=== PATIENT | female | born 1945 | race Caucasian/White ===

== ENCOUNTER 2016-08-24 12:24 | Emergency (ER) | payer OTHER ==
[~2016-08-24] VITALS: Ht 171.4 cm; Wt 77.1 kg
[~2016-08-24 12:24] MED LIST: ABILIFY 15MG15 MG PO; ATORVASTATIN CA10 MG PO; CIPRO500 M1 PO; CIPROFLOXACIN250 MG PO; DEPAKOTE ER250 M1 PO; FAMOTIDINE20 MG PO; MINOCYCLINE HY100 MG PO; NAPROXEN375 M2 PO; SERTRALINE HCL50 MG PO; TOVIAZ8 M1 PO; WARFARIN SODIUM1 MG PO; WARFARIN SODIUM5 MG PO
--- NOTE | 2016-08-24 13:24 | ED GI/GU/ABDOMINAL COMPLAINT ---
History of Present Illness General Chief Complaint: Female Urogenital Problems Stated Complaint: URINARY SYMPTOMS XS 3 DAYS Source: patient Exam Limitations: poor historian Vital Signs & Intake/Output Vital Signs & Intake/Output Vital Signs Date Time Temp Pulse Resp B/P B/P Pulse O2 O2 Flow FiO2 Mean Ox Delivery Rate 08/24 1422 97.8 92 18 124/79 97 Room Air 08/24 1230 98.2 107 18 127/83 97 Room Air Room Air ED Intake and Output 08/25 0000 08/24 1200 Intake Total Output Total Balance Patient 170 lb Weight Weight Reported by Patient Measurement Method Allergies Coded Allergies: Penicillins (Intermediate, RASH 10/19/15) oxycodone (From OxyContin) (Intermediate, RASH 10/19/15) morphine (Intermediate, NAUSEA 10/19/15) Reconcile Medications Aripiprazole (Abilify) 15 MG TABLET 1 TAB PO DAILY DEPRESSION (Reported) Atorvastatin Calcium (Lipitor) 10 MG TABLET 1 TAB PO DAILY CHOLESTEROL ( Reported) Ciprofloxacin HCl (Cipro) 500 MG TABLET 1 TAB PO BID uti CIPROFLOXACIN HCL (Ciprofloxacin HCl) 250 MG TABLET 1 TAB PO BID UTI Divalproex Sodium (Depakote ER) 250 MG TAB.ER.24H 1 TAB PO DAILY MANIC BIPOLAR (Reported) Famotidine 20 MG TABLET 1 TAB PO BID REFLUX (Reported) Fesoterodine Fumarate (Toviaz) 8 MG TAB.ER.24H 1 TAB PO DAILY OVER ACTIVE BLADDER (Reported) Naproxen 375 MG TABLET 1 TAB PO BID PRN PAIN with food Sertraline HCl 50 MG TABLET 1 TAB PO DAILY DEPRESSION (Reported) Sulfamethoxazole/Trimethoprim (Bactrim Ds Tablet) 800 MG-160 MG TABLET 1 TAB PO BID UTI Warfarin Sodium 5 MG TABLET 1 TAB PO DAILY BLOOD THINNER (Reported) Triage Note: TRIAGE: 71 Y/O FEMALE PRESENTS C/O "I PEE ALL THE TIME, I MEAN ALL THE TIME." DENIES URINARY BURNING. 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 * YELLOW BAND APPLIED. Triage Nurses Notes Reviewed? yes ? n Is pt currently ? No Onset: Abrupt Duration: day(s):, constant, continues in ED Timing: recent history HPI: 71-year-old female comes into emergency room with increased frequency with urination and some incontinence issues is been going on on for the past week. Denies any fever chills vomiting. Denies any chest pain abdominal pain. She has chronic numbness in her hands bilaterally which she was told was rheumatoid arthritis a long time ago. She is a poor historian. Denies any other associated symptoms but is alert and oriented. (DIVINA REGAN) Past History Travel History Traveled to [place] past 21 day No Medical History Any Pertinent Medical History? see below for history Neurological: NONE EENT: NONE Cardiovascular: NONE Respiratory: NONE Gastrointestinal: NONE Hepatic: NONE Renal: NONE Musculoskeletal: NONE Psychiatric: depression Endocrine: NONE History of MRSA: No History of VRE: No History of CDIFF: No Surgical History Surgical History: BILATERAL HIP REPLACEMENT, LEFT KNEE TOTAL KNEE REPLACEMENT, RIGHT KNEE MENISCECTOMY Psychosocial History Who do you live with Patient/Self Services at Home None What is your primary language Jamaican Tobacco Use: Never used ETOH Use: occasional use Illicit Drug Use: denies illicit drug use Family History Family History, If Any: Relation not specified for: FH: breast cancer in first degree relative FH: colon cancer Scleroderma Hx Contributory? No (DIVINA REGAN) Review of Systems Review of Systems Constitutional: Reports: no symptoms. EENTM: Reports: no symptoms. Respiratory: Reports: no symptoms. Cardiovascular: Reports: no symptoms. GI: Reports: no symptoms. Genitourinary: Reports: see HPI. Musculoskeletal: Reports: no symptoms. Skin: Reports: no symptoms. Neurological/Psychological: Reports: no symptoms. Hematologic/Endocrine: Reports: no symptoms. Immunologic/Allergic: Reports: no symptoms. All Other Systems: Reviewed and Negative (DIVINA REGAN) Physical Exam Physical Exam General Appearance: well developed/nourished, no apparent distress, alert Head: atraumatic, normal appearance Eyes: Bilateral: normal appearance. Ears, Nose, Throat, Mouth: hearing grossly normal, moist mucous membrane Neck: normal inspection, full range of motion Respiratory: no respiratory distress Cardiovascular: regular rate/rhythm, tachycardia Gastrointestinal: normal bowel sounds, soft, non-tender Back: normal range of motion Extremities: normal range of motion Neurologic/Psych: awake, alert, oriented x 3, normal gait Skin: intact, normal color Core Measures ACS in differential dx? No Severe Sepsis Present: No Septic Shock Present: No (DIVINA REGAN) Progress Differential Diagnosis: appendicitis, colon cancer, diverticulitis, ischemic bowel, kidney stone, UTI/pyelo Plan of Care: Orders Procedure Date/time Status Regular Diet 08/24 D Active Add-on Test (ER Only) 08/24 1335 Active CULTURE,URINE 08/24 1308 Active URINALYSIS 08/24 1301 Complete Laboratory Tests 08/24/16 1308: Urine Color YEL, Urine Clarity HAZY H, Urine pH 6.0, Ur Specific [place] 1.015, Urine Protein 30 H, Urine Ketones NEG, Urine Nitrite NEG, Urine Bilirubin NEG, Urine Urobilinogen 1.0, Ur Leukocyte Esterase LARGE H, Ur Microscopic SEDIMENT EXAMINED, Urine RBC 10-15 H, Urine WBC 25-50 H, Ur Epithelial Cells FEW, Urine Bacteria MOD H, Micro UA Comment MORE INFO: H, Urine Hemoglobin MOD H, Urine Glucose NEG Microbiology 08/24 1308 URINE ROUT: Urine Culture - RECD Initial ED EKG: none Comments: 08/24/2016 2:27:21 PM Patient clinically looks well. She is in no apparent distress. Patient seen and evaluated by Dr. Castro. Patient slightly tachycardic but otherwise no acute findings. She appears to have an uncomplicated UTI. Started on oral antibiotics. Drink plenty of fluids. Lives with family at home. (BROOK REESE,DIVINA) Departure Departure Disposition: HOME OR SELF CARE Condition: Stable Clinical Impression Primary Impression: UTI (urinary tract infection) Referrals: BARB ORTIZ,CHARLIE Raymundo (PCP/Family) Additional Instructions: Take Bactrim as prescribed. Follow-up with your primary care doctor. Return if any concerns worsening symptoms. Please go over all results of today's visit with your primary care doctor. Contact your primary care doctor to let them know you were here in the emergency room. There may be nonspecific findings which may not be related to your visit today here in the emergency room but may require further evaluation and chronic monitoring by your primary care doctor. If you had a laceration today the chance of foreign body always remains. You should follow-up with your primary care doctor for recheck in 3-5 days for a wound check. If you had an x-ray done there is a chance that a fracture could have been missed on initial read and you should follow-up with your primary care doctor for repeat x-rays if symptoms persist. If your blood pressure was elevated here in the emergency room please have rechecked by her primary care doctor within the next 48 hours by your primary care doctor. If you were prescribed a narcotic here in the emergency room or any type of controlled substances you're not allowed to drive while taking this medication or operate any type of heavy machinery. Narcotics can make you feel lightheaded dizziness nausea and can cause constipation. You may need to slate picker a stool softener. Thank you for choosing [facility] emergency room. Please return to the emergency room immediately if you have any other concerns worsening of symptoms. Departure Forms: Customer Survey General Discharge Information Prescriptions: Current Visit Scripts Sulfamethoxazole/Trimethoprim (Bactrim Ds Tablet) 1 TAB PO BID #14 TAB (DIVINA REGAN) PA/CONVEYOR LINE BATTERY CHARGER Co-Sign Statement Statement: ED Attending supervision documentation- [x] I saw and evaluated the patient. I have also reviewed all the pertinent lab results and diagnostic results. I agree with the findings and the plan of care as documented in the PA's/CONVEYOR LINE BATTERY CHARGER's documentation. [] I have reviewed the ED Record and agree with the PA's/CONVEYOR LINE BATTERY CHARGER's documentation. [] Additions or exceptions (if any) to the PAs/CONVEYOR LINE BATTERY CHARGER's note and plan are summarized below: [] (NGHIA ORTIZ,MARQUEZ Justice)
[2016-08-24] MEDS ORDERED: BACTRIM DS TAB1 EACH PO (14:02)
[2016-08-24 14:22] VITALS: BP 124/79
== END 2016-08-24 14:23 ==
LOC: ERH 12:24
DX: N39.0 Urinary tract infection, site not specified (principal)
CPT/HCPCS: 81001; 87086

== ENCOUNTER 2017-04-25 13:37 | Emergency (ER) | payer OTHER ==
[~2017-04-25] VITALS: Ht 162.6 cm; Wt 83.9 kg
[~2017-04-25 13:37] MED LIST changes: -ABILIFY 15MG15 MG PO; +ABILIFY15 M1 PO; +BACTRIM DS TAB1 EACH PO; +FAMOTIDINE20 M1 PO; +GABAPENTIN300 M2 PO; +LIPITOR80 M1 PO; +MOBIC7.5 M1 PO
[2017-04-25 13:43] VITALS: BP 122/65
--- NOTE | 2017-04-25 16:31 | ED GI/GU/ABDOMINAL COMPLAINT ---
History of Present Illness General Chief Complaint: Female Urogenital Problems Stated Complaint: FREQUENT URINATION Source: patient Exam Limitations: no limitations Vital Signs & Intake/Output Vital Signs & Intake/Output Vital Signs Date Time Temp Pulse Resp B/P B/P Pulse O2 O2 Flow FiO2 Mean Ox Delivery Rate 04/25 1739 Room Air 04/25 1343 97.3 79 18 122/65 99 Room Air Allergies Coded Allergies: Penicillins (Intermediate, RASH 10/19/15) oxycodone (From OxyContin) (Intermediate, RASH 10/19/15) morphine (Intermediate, NAUSEA 10/19/15) Reconcile Medications Aripiprazole (Abilify) 15 MG TABLET 1 TAB PO DAILY MENTAL HEALTH (Reported) Atorvastatin Calcium (Lipitor) 80 MG TABLET 1 TAB PO DAILY CHOLESTEROL ( Reported) Ciprofloxacin HCl (Cipro) 500 MG TABLET 1 TAB PO BID UTI Famotidine 20 MG TABLET 1 TAB PO DAILY GI (Reported) Fesoterodine Fumarate (Toviaz) 8 MG TAB.ER.24H 1 TAB PO DAILY BLADDER ( Reported) Gabapentin 300 MG CAPSULE 1 CAP PO BID NUMBNESS IN HANDS (Reported) Sertraline HCl 50 MG TABLET 1 TAB PO DAILY DEPRESSION (Reported) Triage Note: PT TO ED FOR URINARY FREQUENCY AND FLANK PAIN X SEVERAL WEEKS. Triage Nurses Notes Reviewed? yes ? N Is pt currently ? No Duration: constant Timing: recent history Quality/Severity: moderate Severity Numbers: 5 Location: urethral Radiation: no radiation Activities at Onset: none Prior Abdominal Problems: similar symptoms (UTI) HPI: Patient is a 71-year-old female with past medical history of chronic UTIs and depression and chronic back pain who presents emergency with a 10 day history of increased frequency or urination and urgency of frequency of urination, patient denies any fever chills nausea vomiting abdominal pain or worsening back pain. Patient is able to tolerate by mouth with no change in symptoms. Denies any vaginal bleeding or discharge or hematuria Past History Travel History Traveled to [place] past 21 day No Medical History Any Pertinent Medical History? see below for history Neurological: NONE EENT: NONE Cardiovascular: hyperlipidemia Respiratory: NONE Gastrointestinal: NONE Hepatic: NONE Renal: NONE Musculoskeletal: NONE Psychiatric: depression Endocrine: NONE Blood Disorders: NONE Cancer(s): NONE TELECOM ANALYST/Reproductive: NONE History of MRSA: No History of VRE: No History of CDIFF: No Surgical History Surgical History: BILATERAL HIP REPLACEMENT, LEFT KNEE TOTAL KNEE REPLACEMENT, RIGHT KNEE MENISCECTOMY left knee surgery Psychosocial History Who do you live with Patient/Self Services at Home None What is your primary language Italian Tobacco Use: Never used ETOH Use: denies use Illicit Drug Use: denies illicit drug use Family History Family History, If Any: Relation not specified for: FH: breast cancer in first degree relative FH: colon cancer Scleroderma Hx Contributory? No Review of Systems Review of Systems Constitutional: Reports: no symptoms. EENTM: Reports: no symptoms. Respiratory: Reports: no symptoms. Cardiovascular: Reports: no symptoms. GI: Reports: see HPI. Denies: abdominal pain, nausea. Genitourinary: Reports: see HPI, pain. Musculoskeletal: Reports: no symptoms. Skin: Reports: no symptoms. Neurological/Psychological: Reports: no symptoms. Hematologic/Endocrine: Reports: no symptoms. Immunologic/Allergic: Reports: no symptoms. All Other Systems: Reviewed and Negative Physical Exam Physical Exam General Appearance: no apparent distress, alert, comfortable Head: atraumatic Eyes: Bilateral: normal appearance. Ears, Nose, Throat, Mouth: hearing grossly normal Neck: normal inspection Respiratory: normal breath sounds Cardiovascular: regular rate/rhythm Peripheral Pulses: 2+ radial (R) Gastrointestinal: normal bowel sounds, soft, non-tender Back: NO CVA TENDERNESS Extremities: normal range of motion Neurologic/Psych: no motor/sensory deficits, awake Skin: intact, normal color, warm/dry Core Measures ACS in differential dx? No Sepsis Present: No Sepsis Focused Exam Completed? No Progress Differential Diagnosis: AAA, AMI, appendicitis, biliary colic, bowel obstruction , colon cancer, cholecystitis, diverticulitis, endometritis, esophageal varices, gastritis, hepatitis, hernia, hemorrhoids, ischemic bowel, inflamm bowel dis, kidney stone, ovarian cyst, ovarian torsion, pancreatitis, PID/cervicitis, peptic ulcer, PUD/GERD, perforated viscous, SBO, threatened AB, UTI/pyelo Plan of Care: Orders Procedure Date/time Status CULTURE,URINE 04/25 1656 Active URINALYSIS 04/25 1518 Complete Laboratory Tests 04/25/17 1706: Urine Color YEL, Urine Clarity CLEAR, Urine pH 7.0, Ur Specific [place] 1.015, Urine Protein NEG, Urine Ketones NEG, Urine Nitrite NEG, Urine Bilirubin NEG, Urine Urobilinogen 0.2, Ur Leukocyte Esterase LARGE H, Ur Microscopic SEDIMENT EXAMINED, Urine RBC 15-25 H, Ur Epithelial Cells FEW, Urine Bacteria FEW H, Urine Hemoglobin NEG, Urine Glucose NEG Microbiology 04/25 1706 URINE ROUT: Urine Culture - RECD Patient on initial presentation was resting comfortable at bedside no tenderness upon palpation of abdomen no CVA tenderness patient afebrile into pyelonephritis or intra-abdominal acute process. Patient does have increased frequency of urination Urine analysis showed slight concern of UTI however patient again has nontender abdomen denies any preceding symptoms of abdominal pain and has no CVA tenderness Patient will be treated for UNcomplicated cystitis Urine culture pending Initial ED EKG: none Departure Departure Disposition: HOME OR SELF CARE Condition: Stable Clinical Impression Primary Impression: UTI (urinary tract infection) Referrals: Kamran ORTIZ,Zoya Raymundo (PCP/Family) Additional Instructions: As discussed in the prescription for ciprofloxacin as directed for the full course, if symptoms worsen return to emergency, next week follow up with her primary care doctor. Prescriptions waiting at [facility] Departure Forms: Customer Survey General Discharge Information Prescriptions: Current Visit Scripts Ciprofloxacin HCl (Cipro) 1 TAB PO BID #14 TAB
[2017-04-25] MEDS ORDERED: CIPRO500 M1 PO (17:33)
== END 2017-04-25 17:47 ==
LOC: ERH 13:37
DX: N39.0 Urinary tract infection, site not specified (principal)
CPT/HCPCS: 81001; 87086

== ENCOUNTER 2017-05-21 14:01 | Emergency (ER) | payer OTHER ==
[~2017-05-21] VITALS: Ht 167.6 cm; Wt 65.8 kg
[2017-05-21 15:04] LABS: ABSOLUTE BASOPHIL COUNT 0 /CUMM (0.0-0.2); ABSOLUTE EOSINOPHIL COUNT 0.2 /CUMM (0.0-0.7); ABSOLUTE GRANULOCYTE CT 3.9 /CUMM (1.4-6.5); ABSOLUTE LYMPH COUNT 1.5 /CUMM (1.2-3.4); ABSOLUTE MONOCYTE COUNT 0.5 /CUMM (0.10-0.60); BASOPHIL % 0.7 % (0.0-2.0); EOSINOPHIL % 2.7 % (0-5); GRANULOCYTE % 64.3 % (42.2-75.2); HEMATOCRIT 39.6 % (37-47); MEAN CORPUSCULAR HGB CONC 33.2 G/DL (33.0-37.0); MEAN CORPUSCULAR VOLUME 87.2 FL (81.0-99.0); MEAN PLATELET VOLUME 7.3 FL (7.4-10.4); PLATELET COUNT 336 /CUMM (130-400); RBC DISTRIBUTION WIDTH 13.3 % (11.5-14.5); RED BLOOD CELL CT 4.53 /CUMM (4.20-5.40); WHITE BLOOD CELL COUNT 6.1 /CUMM (4.8-10.8)
--- NOTE | 2017-05-21 18:53 | ED GENERAL ADULT ---
History of Present Illness General Chief Complaint: General Adult Stated Complaint: MULTIPLE COMPLAINTS X 2 MONTHS Source: patient Exam Limitations: no limitations Vital Signs & Intake/Output Vital Signs & Intake/Output ED Intake and Output 05/22 0000 05/21 1200 Intake Total Output Total Balance Patient 145 lb Weight Weight Reported by Patient Measurement Method Allergies Coded Allergies: Penicillins (Intermediate, RASH 10/19/15) oxycodone (From OxyContin) (Intermediate, RASH 10/19/15) morphine (Intermediate, NAUSEA 10/19/15) Reconcile Medications Aripiprazole (Abilify) 15 MG TABLET 1 TAB PO DAILY MENTAL HEALTH (Reported) Atorvastatin Calcium (Lipitor) 80 MG TABLET 1 TAB PO DAILY CHOLESTEROL ( Reported) Ciprofloxacin HCl (Cipro) 500 MG TABLET 1 TAB PO BID uti Ciprofloxacin HCl (Cipro) 500 MG TABLET 1 TAB PO BID UTI Famotidine 20 MG TABLET 1 TAB PO DAILY GI (Reported) Fesoterodine Fumarate (Toviaz) 8 MG TAB.ER.24H 1 TAB PO DAILY BLADDER ( Reported) Gabapentin 300 MG CAPSULE 1 CAP PO BID NUMBNESS IN HANDS (Reported) Sertraline HCl 50 MG TABLET 1 TAB PO DAILY DEPRESSION (Reported) Triage Note: PT TO ED FOR ENTIRE BODY NUMBNESS, WEAKNESS AND TINGLING X 2 MONTHS. Triage Nurses Notes Reviewed? yes Onset: Gradual Duration: week(s): (2-3 months ), changing over time, continues in ED Timing: recent history Injury Environment: home Severity: mild, moderate Severity Numbers: 6 No Modifying Factors: none LMP (ages 10-50): unknown : No Patient currently breastfeeds: No HPI: 71-year-old female past medical history hyperlipidemia and depression presents for evaluation of multiple complaints. She reports pain and stiffness in her bilateral hands and wrists. This been going on for months. She states she was diagnosed with arthritis and has been taking Advil with only minimal improvement. She also reports numbness and tingling in her bilateral hands which is also been going on for several months. She says now that her knees are also numb. No swelling spreading redness fever or trauma. Additionally she reports urinary frequency. No urgency fever or back pain abdominal pain chest pain shortness of breath nausea vomiting or diarrhea. No vaginal discharge. (Gerardo Tian) Past History Travel History Traveled to [place] past 21 day No Medical History Any Pertinent Medical History? 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 History of MRSA: No History of VRE: No History of CDIFF: No Surgical History Surgical History: BILATERAL HIP REPLACEMENT, LEFT KNEE TOTAL KNEE REPLACEMENT, RIGHT KNEE MENISCECTOMY left knee surgery Psychosocial History Who do you live with Patient/Self Services at Home None What is your primary language Hong Konger Tobacco Use: Current Daily Use Daily Tobacco Use Amount/Type: => 5 Cigarettes daily ETOH Use: denies use Illicit Drug Use: denies illicit drug use Family History Family History, If Any: Relation not specified for: FH: breast cancer in first degree relative FH: colon cancer Scleroderma Hx Contributory? No (Gerardo Tian) Review of Systems Review of Systems Constitutional: Reports: no symptoms. EENTM: Reports: no symptoms. Respiratory: Reports: no symptoms. Cardiovascular: Reports: no symptoms. GI: Reports: no symptoms. Genitourinary: Reports: frequency. Musculoskeletal: Reports: joint pain, joint swelling, muscle pain, muscle stiffness. Skin: Reports: no symptoms. Neurological/Psychological: Reports: no symptoms. Hematologic/Endocrine: Reports: no symptoms. Immunologic/Allergic: Reports: no symptoms. All Other Systems: Reviewed and Negative (Gerardo Tian) Physical Exam Physical Exam General Appearance: well developed/nourished, no apparent distress, alert, awake Head: atraumatic, normal appearance Eyes: Bilateral: normal appearance, PERRL, EOMI. Ears, Nose, Throat: normal pharynx, normal ENT inspection, hearing grossly normal Neck: normal inspection, supple, full range of motion Respiratory: normal breath sounds, chest non-tender, no respiratory distress, lungs clear Cardiovascular: regular rate/rhythm, normal peripheral pulses Peripheral Pulses: 2+ radial (R), 2+ radial (L) Gastrointestinal: normal bowel sounds, soft, non-tender, no organomegaly Back: normal inspection, normal range of motion, no vertebral tenderness, no CVA tenderness Extremities: there are arthritic changes in the bilateral hands. No swelling of the wrists. No erythema. Pain with range of motion of the bilateral wrists and hands. Neurovascular supply is intact. No open wounds. , no swelling of the bilateral knees. No redness or warmth. Full range of motion of the bilateral knees and hips. Patient is able to walk and bear weight. Neurologic/Psych: no motor/sensory deficits, awake, alert, oriented x 3, normal gait Skin: intact, normal color, warm/dry Core Measures ACS in differential dx? No CVA/TIA Diagnosis: No Sepsis Present: No Sepsis Focused Exam Completed? No (Jason REESE,Gerardo) Progress Differential Diagnoses I considered the following diagnoses in my evaluation of the patient: [ Osteoarthritis, rheumatoid arthritis, Lyme disease, cellulitis, neuropathy, carpal tunnel, cubital tunnel, electrolyte abnormality, UTI, pyelonephritis] Plan of Care: Orders Procedure Date/time Status Add-on Test (ER Only) 05/21 2019 Active CULTURE,URINE 05/21 1949 Active RAPID VIRAL INFLUENZA A 05/21 173 Complete Add-on Test (ER Only) 05/21 1611 Active URINE DRUG SCREEN FOR ER ONLY 05/21 1611 Active ETHANOL 05/21 1457 Complete URINALYSIS 05/21 1431 Complete TROPONIN LEVEL 05/21 1431 Complete COMPREHENSIVE METABOLIC PANEL 05/21 1431 Complete CBC WITHOUT DIFFERENTIAL 05/21 1431 Complete EKG 05/21 1431 Active Laboratory Tests 05/21/17 1950: Urine Opiates Screen Pending, Methadone Screen Pending, Barbiturate Screen Pending, Ur Phencyclidine Scrn Pending, Amphetamines Screen Pending, U Benzodiazepines Scrn Pending, Urine Cocaine Screen Pending, Urine Cannabis Screen Pending, Urinalysis MOD H, Urine Color YEL, Urine Clarity CLDY H, Urine pH 6.0, Ur Specific [place] 1.015, Urine Protein 30 H, Urine Ketones NEG, Urine Nitrite NEG, Urine Bilirubin NEG, Urine Urobilinogen 0.2, Ur Leukocyte Esterase LARGE H, Ur Microscopic SEDIMENT EXAMINED, Urine RBC 3-5, Urine WBC 50-75 H, Ur Epithelial Cells MANY H, Urine Bacteria FEW H, Urine Mucus MOD H, Urine Hemoglobin SMALL H, Urine Glucose NEG 05/21/17 1457: Anion Gap 14, Estimated GFR > 60, BUN/Creatinine Ratio 30.0 H, Glucose 124 H, Calcium 10.0, Total Bilirubin 0.9, AST 20, ALT 28, Alkaline Phosphatase 53, Troponin I < 0.01, Total Protein 7.8, Albumin 4.4, Globulin 3.4, Albumin/ Globulin Ratio 1.3, CBC w Diff NO MAN DIFF REQ, RBC 4.53, MCV 87.2, MCH 29.0, MCHC 33.2, RDW 13.3, MPV 7.3 L, Gran % 64.3, Lymphocytes % 23.9, Monocytes % 8.4, Eosinophils % 2.7, Basophils % 0.7, Absolute Granulocytes 3.9, Absolute Lymphocytes 1.5, Absolute Monocytes 0.5, Absolute Eosinophils 0.2, Absolute Basophils 0, Serum Alcohol < 10.0 Microbiology 05/21 1949 URINE ROUT: Urine Culture - RECD 05/21 1852 NASOPHARYN: Influenza Virus A & B Rapid Smear - COMP Patient seen and evaluated. There is no trauma no signs of infection on exam. Patient has a long history of osteoarthritis. All blood work is within normal limits. Flu is negative. Urine is showing signs of infection. Patient was medicated here with Tylenol feels like her wrists and knees are feeling better. She'll be discharged home on Cipro. Urine culture sent. Advised rest and fluids Tylenol ibuprofen. Patient is alert and oriented 3 she has steady gait. Discussed return precautions in detail. Case discussed with Dr. Pop he agrees. Diagnostic Imaging: Viewed by Me: Radiology Read. Discussed w/RAD: Radiology Read. CXR Impression: PATIENT: MADDI VALDIVIA PRESENT AGE: 71 PATIENT ACCOUNT NO: [id number] : 46 LOCATION: [facility] ORDERING PHYSICIAN: Gerardo REESE SERVICE DATE: 05/21/17 EXAM TYPE: RAD - XRY-CHEST XRAY, TWO VIEWS EXAMINATION: XR CHEST CLINICAL INFORMATION: Cough and fever. COMPARISON: Chest 01/09/2017 TECHNIQUE: 2 views of the chest were obtained. FINDINGS: There is cardiomegaly with elevated left hemidiaphragm. Pulmonary vascularity is normal. The lungs are expanded and clear. No gross bony abnormality seen. IMPRESSION: Unremarkable chest examination. DICTATED BY: Gunnar Tian MD DATE/TIME DICTATED:05/21/171945 MERCHANDISE STOCKER:MARY JANE DATE/ TIME TRANSCRIBED:05/21/171945 CONFIDENTIAL, DO NOT COPY WITHOUT APPROPRIATE AUTHORIZATION. <Electronically signed in Other Vendor System> Initial ED EKG: sinus tach rate 104, inferior infarct age indeterminate (Jason REESE,Gerardo) Departure Departure Disposition: HOME OR SELF CARE Condition: Stable Clinical Impression Primary Impression: UTI (urinary tract infection) Qualifiers: Urinary tract infection type: acute cystitis Hematuria presence: without hematuria Qualified Code: N30.00 - Acute cystitis without hematuria Referrals: Zoya Andrew MD (PCP/Family) Additional Instructions: Take antibiotics as directed for the full course. Use Tylenol 1000mg every 6 hours as needed for pain. Follow-up with your primary care doctor this week. Monitor symptoms closely return with any concerns. Departure Forms: Customer Survey General Discharge Information Prescriptions: Current Visit Scripts Ciprofloxacin HCl (Cipro) 1 TAB PO BID #14 TAB (Gerardo Tian) PA/GAS LINE INSTALLER Co-Sign Statement Statement: ED Attending supervision documentation- x I saw and evaluated the patient. I have also reviewed all the pertinent lab results and diagnostic results. I agree with the findings and the plan of care as documented in the PA's/GAS LINE INSTALLER's documentation. [] I have reviewed the ED Record and agree with the PA's/GAS LINE INSTALLER's documentation. [] Additions or exceptions (if any) to the PAs/GAS LINE INSTALLER's note and plan are summarized below: [] (Michele ORTIZ,Misael) Critical Care Note Critical Care Note Critical Care Time: non-applicable (Gerardo Tian)
--- NOTE | 2017-05-21 19:50 | RADIOLOGY REPORT ---
EXAMINATION: XR CHEST CLINICAL INFORMATION: Cough and fever. COMPARISON: Chest 01/09/2017 TECHNIQUE: 2 views of the chest were obtained. FINDINGS: There is cardiomegaly with elevated left hemidiaphragm. Pulmonary vascularity is normal. The lungs are expanded and clear. No gross bony abnormality seen. IMPRESSION: Unremarkable chest examination.
[2017-05-21] MEDS ORDERED: CIPRO500 M1 PO (20:28)
[2017-05-21 20:29] VITALS: BP 140/90
== END 2017-05-21 20:33 ==
LOC: ERH 14:01
PROVIDERS: Physician Assistant Medical
DX: N39.0 Urinary tract infection, site not specified (principal)
CPT/HCPCS: 71046; 80307; 81001; 87086; 87804; 87804-59; 93005; 93010; G0480

== ENCOUNTER 2017-10-14 18:12 | Inpatient (IN) | payer OTHER ==
[~2017-10-14] VITALS: Ht 170.2 cm; Wt 77.1 kg
--- NOTE | 2017-10-14 18:40 | ED PSYCHIATRIC COMPLAINT ---
History of Present Illness General Chief Complaint: Psychiatric Related Complaint Stated Complaint: SI AND HI WITH A PLAN Source: patient, family Exam Limitations: no limitations Vital Signs & Intake/Output Vital Signs & Intake/Output Vital Signs Date Time Temp Pulse Resp B/P B/P Pulse O2 O2 Flow FiO2 Mean Ox Delivery Rate 10/14 1821 99.1 120 18 123/92 97 Room Air Allergies Coded Allergies: Penicillins (Intermediate, RASH 10/19/15) oxycodone (From OxyContin) (Intermediate, RASH 10/19/15) morphine (Intermediate, NAUSEA 10/19/15) Reconcile Medications Aripiprazole (Abilify) 15 MG TABLET 1 TAB PO DAILY MENTAL HEALTH (Reported) Atorvastatin Calcium (Lipitor) 80 MG TABLET 1 TAB PO DAILY CHOLESTEROL ( Reported) Ciprofloxacin HCl (Cipro) 500 MG TABLET 1 TAB PO BID uti Ciprofloxacin HCl (Cipro) 500 MG TABLET 1 TAB PO BID UTI Famotidine 20 MG TABLET 1 TAB PO DAILY GI (Reported) Fesoterodine Fumarate (Toviaz) 8 MG TAB.ER.24H 1 TAB PO DAILY BLADDER ( Reported) Gabapentin 300 MG CAPSULE 1 CAP PO BID NUMBNESS IN HANDS (Reported) Sertraline HCl 50 MG TABLET 1 TAB PO DAILY DEPRESSION (Reported) Triage Note: 72F TO ED WITH DEPRESSION SYMPTOMS, POOR ENERGY, ISOLATION, AND +SI WITHOUT A PLAN OR PREVIOUS ATTEMPTS. PT WAS ON ABILIFY, ZOLOFT AND WAS TOLD TO STOP TAKING THEM AND TO COME IN FOR MED ADJUSTMENT. PT DENIES HI. DENIES ETOH OR ILLICIT DRUGS. PRESENTS WITH DYSPHORIC MOOD AND LIMITED RANGE OF AFFECT. FAMILY REPORTS VERY POOR ADL'S Triage Nurses Notes Reviewed? yes Onset: Gradual Duration: week(s): Timing: recent history Severity: moderate HPI: 72YO FEMALE with hx of depression, hyperlipidemia sent in by primary doctor for worsening depression symptoms and suicidal ideation. Patient reports depression for over 1 year for which she has been taking medication. He does not notice much relief from these medications. [id number] states that for the past 6 months she has seen a deterioration in the patient's condition. Patient has very poor hydration, low appetite, lack of interest in any activities. Patient reports thoughts of suicide however she currently has no suicidal intent or plan. She states her doctor sent her in for medication adjustment and possible admission. The patient denies HI. Past History Travel History Traveled to [place] past 21 day No Medical History Any Pertinent Medical History? 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 No Review of Systems Review of Systems Constitutional: Reports: see HPI. EENTM: Reports: no symptoms. Respiratory: Reports: no symptoms. Cardiovascular: Reports: no symptoms. GI: Reports: no symptoms. Genitourinary: Reports: no symptoms. Musculoskeletal: Reports: no symptoms. Skin: Reports: no symptoms. Neurological/Psychological: Reports: see HPI. Hematologic/Endocrine: Reports: no symptoms. Immunologic/Allergic: Reports: no symptoms. All Other Systems: Reviewed and Negative Physical Exam Physical Exam General Appearance: well developed/nourished, no apparent distress, alert, awake Head: atraumatic, normal appearance Eyes: Bilateral: normal appearance. Ears, Nose, Throat: hearing grossly normal Neck: normal inspection, supple, full range of motion Respiratory: normal breath sounds, no respiratory distress, lungs clear Cardiovascular: regular rate/rhythm Gastrointestinal: normal bowel sounds, soft, non-tender, no organomegaly Extremities: normal range of motion Neurological/Psychiatric: no motor/sensory deficits, awake, normal mood/affect, calm Appearance/Memory/Insight: appropriate appearance, appropriate insight Behavoir/Eye Contact/Speech: cooperative, normal speech Thoughts/Hallucinations: normal thought pattern, no apparent hallucination Skin: intact, normal color, warm/dry SAD PERSONS SAD PERSONS Response Value Age <19 or >45 years? yes 1 Depression/Hopelessness? yes 2 Single//? yes 1 Social Support? has support 0 Total 4 SAD PERSONS Done? yes Progress Differential Diagnosis: dementia, drug overdose, depression, suicidal ideation, anemia, electrolyte abnormality Plan of Care: Orders Procedure Date/time Status Regular Diet 07/18 B Active Continuous Observation Monitor 10/15 1827 Active URINE DRUG SCREEN FOR ER ONLY 10/15 1827 Active URINALYSIS 10/15 1827 Active TROPONIN LEVEL 10/15 1827 Active ETHANOL 10/15 1827 Active COMPREHENSIVE METABOLIC PANEL 10/15 1827 Active CBC WITHOUT DIFFERENTIAL 10/15 1827 Active ED CRISIS PSYCH CONSULT 10/15 1827 Active Laboratory Tests 10/14/17 1849: Sodium Pending, Potassium Pending, Chloride Pending, Carbon Dioxide Pending, Anion Gap Pending, BUN Pending, Creatinine Pending, BUN/Creatinine Ratio Pending , Glucose Pending, Calcium Pending, Total Bilirubin Pending, AST Pending, ALT Pending, Alkaline Phosphatase Pending, Troponin I Pending, Total Protein Pending , Albumin Pending, Globulin Pending, Albumin/Globulin Ratio Pending, CBC w Diff Pending, WBC Pending, RBC Pending, Hgb Pending, Hct Pending, MCV Pending, MCH Pending, MCHC Pending, RDW Pending, Plt Count Pending, MPV Pending, Serum Alcohol Pending Labs and urinalysis are pending. The patient was signed out to Dr. Su pending crisis evaluation and labs. Hand-Off Endorsed To: Jeferson Su DO Endorsed Time: 1839 Pending: consult (crisis), labs Departure Departure Disposition: STILL A PATIENT Condition: Stable Clinical Impression Primary Impression: Suicidal ideation Secondary Impressions: Depression Qualifiers: Depression Type: unspecified Qualified Code: F32.9 - Major depressive disorder, single episode, unspecified Referrals: Kamran ORTIZ,Zoya Raymundo (PCP/Family) Departure Forms: Customer Survey General Discharge Information
--- NOTE | 2017-10-14 18:45 | ED PSYCHIATRIC COMPLAINT ---
History of Present Illness General Chief Complaint: Psychiatric Related Complaint Stated Complaint: SI AND HI WITH A PLAN Source: patient, family Exam Limitations: no limitations Vital Signs & Intake/Output Vital Signs & Intake/Output Vital Signs Date Time Temp Pulse Resp B/P B/P Pulse O2 O2 Flow FiO2 Mean Ox Delivery Rate 10/15 0834 98.7 108 20 112/79 98 Room Air 10/15 0550 97.0 94 20 128/85 95 Room Air 10/14 2237 98.4 99 18 110/83 94 Room Air 10/14 2016 98.6 110 18 117/91 94 Room Air 10/14 1907 Room Air 10/14 1821 99.1 120 18 123/92 97 Room Air ED Intake and Output 10/15 0000 10/14 1200 Intake Total Output Total Balance Patient 170 lb Weight Allergies Coded Allergies: Penicillins (Intermediate, RASH 10/19/15) oxycodone (From OxyContin) (Intermediate, RASH 10/19/15) morphine (Intermediate, NAUSEA 10/19/15) Triage Note: 72F TO ED WITH DEPRESSION SYMPTOMS, POOR ENERGY, ISOLATION, AND +SI WITHOUT A PLAN OR PREVIOUS ATTEMPTS. PT WAS ON ABILIFY, ZOLOFT AND WAS TOLD TO STOP TAKING THEM AND TO COME IN FOR MED ADJUSTMENT. PT DENIES HI. DENIES ETOH OR ILLICIT DRUGS. PRESENTS WITH DYSPHORIC MOOD AND LIMITED RANGE OF AFFECT. FAMILY REPORTS VERY POOR ADL'S Triage Nurses Notes Reviewed? yes Onset: Gradual Duration: week(s): Timing: recent history Severity: moderate HPI: 72YO FEMALE with hx of depression, hyperlipidemia sent in by primary doctor for worsening depression symptoms and suicidal ideation. Patient reports depression for over 1 year for which she has been taking medication. He does not notice much relief from these medications. Xezyvdta-he-lei states that for the past 6 months she has seen a deterioration in the patient's condition. Patient has very poor hydration, low appetite, lack of interest in any activities. Patient reports thoughts of suicide however she currently has no suicidal intent or plan. She states her doctor sent her in for medication adjustment and possible admission. The patient denies HI. (Jina REESE,Briana Azevedo) Reconcile Medications Aripiprazole (Abilify) 15 MG TABLET 1 TAB PO DAILY MENTAL HEALTH (Reported) Atorvastatin Calcium (Lipitor) 80 MG TABLET 1 TAB PO DAILY CHOLESTEROL ( Reported) Famotidine 20 MG TABLET 1 TAB PO DAILY GI (Reported) Fesoterodine Fumarate (Toviaz) 8 MG TAB.ER.24H 1 TAB PO DAILY BLADDER ( Reported) Gabapentin 300 MG CAPSULE 1 CAP PO BID NUMBNESS IN HANDS (Reported) Sertraline HCl 50 MG TABLET 1 TAB PO DAILY DEPRESSION (Reported) (Jeferson Huerta DO) Past History Travel History Traveled to [place] past 21 day No Medical History Any Pertinent Medical History? see below for history Neurological: NONE EENT: NONE Cardiovascular: hyperlipidemia Respiratory: NONE Gastrointestinal: NONE Hepatic: NONE Renal: NONE Musculoskeletal: NONE Psychiatric: depression Endocrine: NONE Blood Disorders: NONE Cancer(s): NONE CRITICAL CARE CNS/Reproductive: NONE History of MRSA: No History of VRE: No History of CDIFF: No Surgical History Surgical History: BILATERAL HIP REPLACEMENT, LEFT KNEE TOTAL KNEE REPLACEMENT, RIGHT KNEE MENISCECTOMY left knee surgery Psychosocial History Who do you live with Patient/Self Services at Home None What is your primary language Luxembourgish Tobacco Use: Never used Family History Family History, If Any: Relation not specified for: FH: breast cancer in first degree relative FH: colon cancer Scleroderma Hx Contributory? No (Briana Quiroz) Review of Systems Review of Systems Constitutional: Reports: see HPI. EENTM: Reports: no symptoms. Respiratory: Reports: no symptoms. Cardiovascular: Reports: no symptoms. GI: Reports: no symptoms. Genitourinary: Reports: no symptoms. Musculoskeletal: Reports: no symptoms. Skin: Reports: no symptoms. Neurological/Psychological: Reports: see HPI. Hematologic/Endocrine: Reports: no symptoms. Immunologic/Allergic: Reports: no symptoms. All Other Systems: Reviewed and Negative (Briana Quiroz) Physical Exam Physical Exam General Appearance: well developed/nourished, no apparent distress, alert, awake Head: atraumatic, normal appearance Eyes: Bilateral: normal appearance. Ears, Nose, Throat: hearing grossly normal Neck: normal inspection, supple, full range of motion Respiratory: normal breath sounds, no respiratory distress, lungs clear Cardiovascular: regular rate/rhythm Gastrointestinal: normal bowel sounds, soft, non-tender, no organomegaly Extremities: normal range of motion Neurological/Psychiatric: awake, alert, normal mood/affect, calm Appearance/Memory/Insight: appropriate appearance, appropriate insight Behavoir/Eye Contact/Speech: cooperative, normal speech, good eye contact Thoughts/Hallucinations: normal thought pattern, no apparent hallucination Skin: intact, normal color, warm/dry SAD PERSONS SAD PERSONS Response Value Age <19 or >45 years? yes 1 Depression/Hopelessness? yes 2 Single//? yes 1 Social Support? has support 0 Total 4 SAD PERSONS Done? yes (Jina REESE,Briana Azevedo) Progress Differential Diagnosis: dementia, drug overdose, suicidal ideation, depression, anemia, electrolyte abnormality Plan of Care: Orders Procedure Date/time Status Regular Diet 10/15 B Active Admit to inpatient psych 10/15 1030 Active Add-on Test (ER Only) 10/15 1022 Active RBC FOLATE Ref$ 10/15 0600 Active Add-on Test (ER Only) 10/14 213 Active CULTURE,URINE 10/15 2031 Active TSH REFLEX 10/14 184 Complete THYROXINE 10/14 184 Complete LIPID PANEL 10/14 184 Complete GLYCOSYLATED HGB 10/14 184 Complete VITAMIN B12 10/14 184 Complete Continuous Observation Monitor 10/14 182 Active URINE DRUG SCREEN FOR ER ONLY 10/14 182 Complete URINALYSIS 10/14 182 Complete TROPONIN LEVEL 10/14 1828 Complete ETHANOL 10/14 1828 Complete COMPREHENSIVE METABOLIC PANEL 10/14 182 Complete CBC WITHOUT DIFFERENTIAL 10/15 1827 Complete ED CRISIS PSYCH CONSULT 10/14 182 Active Current Medications Sig/Bill Start time Last Medication Dose Stop Time Status Admin Nitrofurantoin 100 MG ONCE ONE 10/15 1030 UNVr (Macrodantin 50MG 10/15 1031 Cap) Laboratory Tests 10/14/172031: Urine Opiates Screen < 100, Methadone Screen < 40, Barbiturate Screen < 60, Ur Phencyclidine Scrn < 6.00, Amphetamines Screen < 100, U Benzodiazepines Scrn < 85, Urine Cocaine Screen < 50, Urine Cannabis Screen < 5.00, Urine Color STRAW, Urine Clarity CLEAR, Urine pH 6.5, Ur Specific [place] <= 1.005, Urine Protein NEG, Urine Ketones NEG, Urine Nitrite POS H, Urine Bilirubin NEG, Urine Urobilinogen 0.2, Ur Leukocyte Esterase LARGE H, Ur Microscopic SEDIMENT EXAMINED, Urine RBC 1-3, Urine WBC > 75 H, Ur Epithelial Cells FEW, Urine Bacteria MANY H, Urine Hemoglobin TRACE-INTACT, Urine Glucose NEG 10/14/171848: Anion Gap 13, Estimated GFR > 60, BUN/Creatinine Ratio 25.0, Glucose 100 H, Hemoglobin A1c 6.0 H, Calcium 10.1, Total Bilirubin 1.0, AST 24, ALT 29, Alkaline Phosphatase 57, Troponin I < 0.01, Total Protein 7.8, Albumin 4.5, Globulin 3.3, Albumin/Globulin Ratio 1.4, Triglycerides 117, Cholesterol 156, LDL Cholesterol, Calc 83, HDL Cholesterol 50, Cholesterol/HDL Ratio 3, Vitamin B12 361, Thyroxine (T4) 9.7, TSH &T3 &Free T4 Intrp 0.450, CBC w Diff NO MAN DIFF REQ, RBC 4.68, MCV 88.1, MCH 29.6, MCHC 33.6, RDW 13.3, MPV 7.9, Gran % 71.4, Lymphocytes % 18.9 L, Monocytes % 7.3, Eosinophils % 1.7, Basophils % 0.7 , Absolute Granulocytes 5.9, Absolute Lymphocytes 1.6, Absolute Monocytes 0.6, Absolute Eosinophils 0.1, Absolute Basophils 0.1, Serum Alcohol < 10.0 Microbiology 10/15 2031 URINE ROUT: Urine Culture - RECD Labs are pending. The patient was signed out to Dr. Huerta pending labs and crisis evaluation. Hand-Off Endorsed To: Jeferson Huerta DO Endorsed Time: 1843 Pending: consult, labs (Briana Quiroz) Comments: I assumed care of this patient from Dr. Mackey at the time of shift change at 7 AM. At 10:30 AM the crisis team informed me that they have decided to admit the patient. In the interim, we noted that she has a positive urine so we have sent a urine culture and treated her with Macrobid. However, her psychiatric symptoms and suicidality have been present for 6-12 months subjectively, so I do not feel that her UTI as the cause of this, rather she likely has a UTI superimposed on top of her psychiatric disease. (Jefreson Huerta DO) Departure Departure Condition: Stable Clinical Impression Primary Impression: Suicidal ideation Secondary Impressions: Depression Qualifiers: Depression Type: unspecified Qualified Code: F32.9 - Major depressive disorder, single episode, unspecified Referrals: Zoya Andrew MD (PCP/Family) Departure Forms: Customer Survey General Discharge Information (Briana Quiroz) Departure Comments pt to be signed out to dr. huerta 10/15/17, 7am PA/CASING WORKER Co-Sign Statement Statement: ED Attending supervision documentation- [] I saw and evaluated the patient. I have also reviewed all the pertinent lab results and diagnostic results. I agree with the findings and the plan of care as documented in the PA's/CASING WORKER's documentation. [x] I have reviewed the ED Record and agree with the PA's/CASING WORKER's documentation. [] Additions or exceptions (if any) to the PAs/CASING WORKER's note and plan are summarized below: [] (Narendra ORTIZ,Carlos Diaz) Departure Time of Disposition: 103 Disposition: STILL A PATIENT Psych Admission Note Psychiatric Admission: X I have seen and evaluated MADDI VALDIVIA. I have also reviewed all the pertinent lab results and diagnostic results. MADDI VALDIVIA will be admitted to our inpatient Psychiatric unit for treatment and care. PA/CASING WORKER Co-Sign Statement Statement: ED Attending supervision documentation- [] I saw and evaluated the patient. I have also reviewed all the pertinent lab results and diagnostic results. I agree with the findings and the plan of care as documented in the PA's/CASING WORKER's documentation. [] I have reviewed the ED Record and agree with the PA's/CASING WORKER's documentation. [] Additions or exceptions (if any) to the PAs/CASING WORKER's note and plan are summarized below: [] (Jeferson Huerta DO)
[2017-10-14 19:00] LABS: ABSOLUTE BASOPHIL COUNT 0.1 /CUMM (0.0-0.2); ABSOLUTE EOSINOPHIL COUNT 0.1 /CUMM (0.0-0.7); ABSOLUTE GRANULOCYTE CT 5.9 /CUMM (1.4-6.5); ABSOLUTE LYMPH COUNT 1.6 /CUMM (1.2-3.4); ABSOLUTE MONOCYTE COUNT 0.6 /CUMM (0.10-0.60); BASOPHIL % 0.7 % (0.0-2.0); EOSINOPHIL % 1.7 % (0-5); GRANULOCYTE % 71.4 % (42.2-75.2); HEMATOCRIT 41.2 % (37-47); MEAN CORPUSCULAR HGB 29.6 PG (27.0-31.0); MEAN CORPUSCULAR HGB CONC 33.6 G/DL (33.0-37.0); MEAN CORPUSCULAR VOLUME 88.1 FL (81.0-99.0); MEAN PLATELET VOLUME 7.9 FL (7.4-10.4); PLATELET COUNT 340 /CUMM (130-400); RBC DISTRIBUTION WIDTH 13.3 % (11.5-14.5); RED BLOOD CELL CT 4.68 /CUMM (4.20-5.40); WHITE BLOOD CELL COUNT 8.3 /CUMM (4.8-10.8)
--- NOTE | 2017-10-14 21:02 | ED PSY CRISIS COLLATERAL NOTE ---
Collateral Note Collateral Note Family/Inform/Ar Contacts: Spoke with son Gerardo. He reported his mother "is bipolar and does nothing but lay in bed all day everyday, I can't accentuate that enough". He reported she is also a "chicken little and says the jacek is falling" but may not be honest with us. He reported he does things for her because "otherwise they would not get done". He reported they live in a 2 family house and she lives on the second floor. He does not feel she is at risk to herself and wouldn't do anything to kill herself. He said she is not actively suicidal but he believes she has "lost the will to live".
--- NOTE | 2017-10-14 21:23 | ED PSYCH CRISIS CONSULTATION ---
See Addendum Crisis Consult Basic Assessment Date of Consult: 10/14/17 Responsible Person/Accompanied By: self Insurance Authorization: Insurance #1: Insurance name: [facility] MEDICARE PLAN Phone number: Policy number: [id number] Group number: [id number] Authorization number: ED Provider: Patient's ED Provider: Jeferson Su DO Primary Care Physician: Patient's PCP: Zoya Andrew MD PCP's Current Psychiatrist: Dr. Tristan at [facility] Chief Complaint: Psychiatric Related Complaint Patient's Quote: "I guess I'm suicidal" Present Illness: Pt. was a 72 year old female who was transported to the ER from her psychiatrist's office, Dr. Tristan, at [facility]. She is so depressed that she lays in bed all day everyday. She had a discernable odor of unwashed clothing and urine and her hair was matted. She reported that she lays down with closed eyes all day everyday. She stated she feels suicidal but could not name a plan. She denied HI and denied AH/VH. She denied trauma history. 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 She stated she doesn't clean the house or go outside ever. Patient's Address: [address] [place] [address] Other Phone Number: Who Do You Live With? Patient/Self Family/Informants Interviewed: Son interviewed. See collateral note Allergies - Coded Allergies: Penicillins (Intermediate, RASH 10/19/15) oxycodone (From OxyContin) (Intermediate, RASH 10/19/15) morphine (Intermediate, NAUSEA 10/19/15) Current Medications - Scheduled Medications Aripiprazole (Abilify) 15 MG TABLET 1 TAB PO DAILY MENTAL HEALTH (Reported) Entered as Reported by Ashley Jones on 09/19/13 1711 Atorvastatin Calcium (Lipitor) 80 MG TABLET 1 TAB PO DAILY CHOLESTEROL #90 ( Reported) Entered as Reported by Meron Mcneil on 11/14/16 1632 Ciprofloxacin HCl (Cipro) 500 MG TABLET 1 TAB PO BID uti #14 TAB Prescribed by Gerardo Tian on 05/21/17 Ciprofloxacin HCl (Cipro) 500 MG TABLET 1 TAB PO BID UTI #14 TAB Prescribed by Orville Mcconnell on 04/25/17 Famotidine 20 MG TABLET 1 TAB PO DAILY GI #60 (Reported) Entered as Reported by Meron Mcneil on 11/14/16 1632 Fesoterodine Fumarate (Toviaz) 8 MG TAB.ER.24H 1 TAB PO DAILY BLADDER #90 ( Reported) Entered as Reported by Meron Mcneil on 01/09/17 1616 Gabapentin 300 MG CAPSULE 1 CAP PO BID NUMBNESS IN HANDS #60 (Reported) Entered as Reported by Meron Mcneil on 01/09/17 1615 Sertraline HCl 50 MG TABLET 1 TAB PO DAILY DEPRESSION (Reported) Entered as Reported by Morelia Palomino on 11/22/15 1424 Laboratory Results: Laboratory Tests 10/14/172031: Urine Opiates Screen Pending, Methadone Screen Pending, Barbiturate Screen Pending, Ur Phencyclidine Scrn Pending, Amphetamines Screen Pending, U Benzodiazepines Scrn Pending, Urine Cocaine Screen Pending, Urine Cannabis Screen Pending, Urine Color STRAW, Urine Clarity CLEAR, Urine pH 6.5, Ur Specific [place] <= 1.005, Urine Protein NEG, Urine Ketones NEG, Urine Nitrite POS H, Urine Bilirubin NEG, Urine Urobilinogen 0.2, Ur Leukocyte Esterase LARGE H, Ur Microscopic SEDIMENT EXAMINED, Urine RBC 1-3, Urine WBC > 75 H, Ur Epithelial Cells FEW, Urine Bacteria MANY H, Urine Hemoglobin TRACE-INTACT, Urine Glucose NEG 10/14/17 1849: Anion Gap 13, Estimated GFR > 60, BUN/Creatinine Ratio 25.0, Glucose 100 H, Calcium 10.1, Total Bilirubin 1.0, AST 24, ALT 29, Alkaline Phosphatase 57, Troponin I < 0.01, Total Protein 7.8, Albumin 4.5, Globulin 3.3, Albumin/ Globulin Ratio 1.4, CBC w Diff NO MAN DIFF REQ, RBC 4.68, MCV 88.1, MCH 29.6, MCHC 33.6, RDW 13.3, MPV 7.9, Gran % 71.4, Lymphocytes % 18.9 L, Monocytes % 7.3, Eosinophils % 1.7, Basophils % 0.7, Absolute Granulocytes 5.9, Absolute Lymphocytes 1.6, Absolute Monocytes 0.6, Absolute Eosinophils 0.1, Absolute Basophils 0.1, Serum Alcohol < 10.0 Past History Past Medical History Neurological: NONE EENT: NONE Cardiovascular: hyperlipidemia Respiratory: NONE Gastrointestinal: NONE Hepatic: NONE Renal: NONE Musculoskeletal: NONE Psychiatric: depression Endocrine: NONE Blood Disorders: NONE Cancer(s): NONE 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 is able to articulate herself and ask for help. Psychiatric Treatment History Psych Treatment Psychiatric Treatment Yes Inpatient Treatment Yes Outpatient Treatment No Location of Treatment [facility] Dates of Treatment [facility] 10 years ago Diagnosis by History: Bipolar disorder (she reported this was diagnosed by [facility] 10 years ago) Substance Use/Abuse History Drug Use/Abuse Substances Used/Abused No Substance Abuse Treatment Substance Abuse Treatment Past Substance Abuse [place] No Current Mental Status Mental Status Orientation: Person, Place, Situation Affect: Flat, Hopeless Speech: Soft Neuro-vegetative: Anhedonia, Concentration Poor, Energy Decreased, Helpless, Loss of Interest, Sleep Disturbance Appearance Appearance- Dress/Hygiene: very disheveled, very poor hygiene in hospital gown. Behaviors Thought Process: WNL Thought Content: WNL Memory: WNL Insight: Poor SI/HI Risk Assessment Past Suicidal Ideation/Attempts Yes Current Suicidal Ideation/Att Yes Past Homicidal Ideation/Att: No Current Homicidal Ideation/Attempts No Degree of Intent: Thoughts/No Intent Danger To: Self Gravely Disabled: Inability Risk Factors: age (under 24/over 65), SA/ hospitalized, isolate/no social support, lack of outcome concern Lethality Ratin PTSD Checklist PTSD Score: PTSD Score: Response Value Disturbing memories,thoughts,images of stressful experience? Not at all 1 Disturbing dreams of stressful experience from past? Not at all 1 Suddenly acting/feeling as if reliving stressful experience? Not at all 1 Unpleasant feeling when reminded of stressful experience? Not at all 1 Physical reactions when reminded of stressful experience? Not at all 1 Avoid thinking/talking of stressful exp. to avoid reactions? Not at all 1 Avoid activities/situations that remind of stressful exp.? Not at all 1 Trouble remembering important parts of stressful experience? Not at all 1 Loss of interest in things that you used to enjoy? Extremely 5 Feeling distant or cut off from other people? Extremely 5 Feeling emotionally numb/unable to love those close to you? Extremely 5 Feeling as if your future will somehow be cut short? A little bit 2 Trouble falling or staying asleep? Not at all 1 Feeling irritable or having angry outbursts? Moderately 3 Having difficulty concentrating? Extremely 5 Being super alert or watchful on guard? Not at all 1 Feeling jumpy or easily startled? Not at all 1 Total 36 ED Management Sitter: Yes Restraints: No DSM5/PS Stressors/Medical Prob Diagnosis' (DSM 5, Stressors, Medical): F32.2 Major Depressive Disorder Current GAF: 20 Departure Disposition Psych Medical Clearance Date: 10/14/17 Medically Cleared at: 2099 Time Started: 2099 Time Ended: 2119 Psychiatrist Consulted: Damaris Madison MD Date Disposition Established: 10/14/17 Time Disposition Established: 2129 Plan for Disposition - Modality: Bed Search Facility: [facility] Rationale for Disposition: Dr. Madison consulted. She stated that pt. should be admitted to the hospital. Since there are no beds on [facility] now it will be a bed search until an available bed is found. Pt. is depressed and helpless and incapable of caring for herself. CSSRS done and indicated risks are wish to be , suicidal thoughts, suicidal intent without plan, feeling alone, previous psych diag. and treatment, hopelessness, helplessness, major depressive episode. protective factors include supportive family (son). Type of IP Admission: Voluntary Referrals Kamran ORTIZ,Zoya Raymundo (PCP/Family)
--- NOTE | 2017-10-15 12:09 | IP CRISIS DIAG ASSESS PSYCH ---
Diagnostic Assessment Basic Assessment Insurance Authorization: Insurance #1: Insurance name: E[employer] PLAN Phone number: Policy number: [id number] Group number: [id number] Authorization number: [id number] approved 3 days - review with Rosario Griffin [phone] ext [phone] Gilles is QMB Primary Care Physician: Patient's PCP: Zoya Andrew MD PCP's Patient's Quote: "I guess I'm suicidal" Present Illness: Completed by Victorina Armenta 10/14/17: Pt. is a 72 year old female who was transported to the ER from her psychiatrist's office, Dr. Tristan, at [facility]. She is so depressed that she lays in bed all day everyday. Pt reports her depression has been progressively increasing past 6 months. She had a discernable odor of unwashed clothing and urine and her hair was matted. She reported that she lays down with closed eyes all day everyday. She stated she feels suicidal but could not name a plan. She denied HI and denied AH/VH. She denied trauma history. Pt was inpatient on [facility] in 1988. Pt reports that was her only psychiatric admission. Pt reports that she has been prescribed Abilify and Zoloft by Dr Tristan but stopped recently because she doesn't think they were helpful. 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 She stated she doesn't clean the house or go outside ever. Pt son reports she is depressed and hasn't been caring for her ADLs and lays in bed all day past 6 months. Case reviewed with Dr Madsion with recommendation for inpatient psychiatric treatment. Patient's Address: [address] [place] [address] Other Phone Number: Who Do You Live With? Patient/Self (son lives on [facility]) Feel Safe Where You Live? Yes Feel Safe in Your Relationship Yes Marital Status: Do You Have Children? Yes Ages? 44 Primary Language? Stateless Language(s) Spoken At Home: Stateless Family/Informants Interviewed: Son interviewed. See collateral note Allergies - Coded Allergies: Penicillins (Intermediate, RASH 10/19/15) oxycodone (From OxyContin) (Intermediate, RASH 10/19/15) morphine (Intermediate, NAUSEA 10/19/15) Current Medications - Scheduled Medications Aripiprazole (Abilify) 15 MG TABLET 1 TAB PO DAILY MENTAL HEALTH (Reported) Entered as Reported by Ashley Jones on 09/19/13 1711 Atorvastatin Calcium (Lipitor) 80 MG TABLET 1 TAB PO DAILY CHOLESTEROL #90 ( Reported) Entered as Reported by Meron Mcneil on 11/14/16 1632 Famotidine 20 MG TABLET 1 TAB PO DAILY GI #60 (Reported) Entered as Reported by Meron Mcneil on 11/14/16 1632 Fesoterodine Fumarate (Toviaz) 8 MG TAB.ER.24H 1 TAB PO DAILY BLADDER #90 ( Reported) Entered as Reported by Meron Mcneil on 01/09/17 1616 Gabapentin 300 MG CAPSULE 1 CAP PO BID NUMBNESS IN HANDS #60 (Reported) Entered as Reported by Meron Mcneil on 01/09/17 1615 Sertraline HCl 50 MG TABLET 1 TAB PO DAILY DEPRESSION (Reported) Entered as Reported by Morelia Palomino on 11/22/15 1424 Consequences of Psych Med Use: pt prescribed abilify and zoloft. Comment: dr Tristan recommending a med change Lab Results: Laboratory Tests 10/14/172031: Urine Opiates Screen < 100, Methadone Screen < 40, Barbiturate Screen < 60, Ur Phencyclidine Scrn < 6.00, Amphetamines Screen < 100, U Benzodiazepines Scrn < 85, Urine Cocaine Screen < 50, Urine Cannabis Screen < 5.00, Urine Color STRAW, Urine Clarity CLEAR, Urine pH 6.5, Ur Specific [place] <= 1.005, Urine Protein NEG, Urine Ketones NEG, Urine Nitrite POS H, Urine Bilirubin NEG, Urine Urobilinogen 0.2, Ur Leukocyte Esterase LARGE H, Ur Microscopic SEDIMENT EXAMINED, Urine RBC 1-3, Urine WBC > 75 H, Ur Epithelial Cells FEW, Urine Bacteria MANY H, Urine Hemoglobin TRACE-INTACT, Urine Glucose NEG 10/14/17 184: Anion Gap 13, Estimated GFR > 60, BUN/Creatinine Ratio 25.0, Glucose 100 H, Hemoglobin A1c 6.0 H, Calcium 10.1, Total Bilirubin 1.0, AST 24, ALT 29, Alkaline Phosphatase 57, Troponin I < 0.01, Total Protein 7.8, Albumin 4.5, Globulin 3.3, Albumin/Globulin Ratio 1.4, Triglycerides 117, Cholesterol 156, LDL Cholesterol, Calc 83, HDL Cholesterol 50, Cholesterol/HDL Ratio 3, Vitamin B12 361, Thyroxine (T4) 9.7, TSH &T3 &Free T4 Intrp 0.450, CBC w Diff NO MAN DIFF REQ, RBC 4.68, MCV 88.1, MCH 29.6, MCHC 33.6, RDW 13.3, MPV 7.9, Gran % 71.4, Lymphocytes % 18.9 L, Monocytes % 7.3, Eosinophils % 1.7, Basophils % 0.7 , Absolute Granulocytes 5.9, Absolute Lymphocytes 1.6, Absolute Monocytes 0.6, Absolute Eosinophils 0.1, Absolute Basophils 0.1, Serum Alcohol < 10.0 Microbiology 10/15 2031 URINE ROUT: Urine Culture - RECD Toxicology Screen Completed? Yes Results: negative Symptoms of Use: denies etoh and substance use Past History Past Medical History Medical History: Hypertension, oSTEOARTHRITIS, BIPOLAR DISORDER Past Surgical History Surgical History BILATERAL HIP REPLACEMENT, LEFT KNEE REPLACEMENT Abuse/Trauma History Trauma History/Current Trauma: Denies Legal History Current Legal Status: none Psychosocial History Strengths/Capabilities: Pt. is able to articulate herself and ask for help. Psychiatric Treatment History Psych Treatment Psychiatric Treatment Yes Inpatient Treatment Yes Outpatient Treatment Yes Location of Treatment [facility]; [facility] Reason for Treatment bipolar/depression Dates of Treatment [facility] 1988; cuurent outpatient at [facility] Response to Treatment pt experincing depression with passive SI; pt doesn't think medications are working. Diagnosis by History: Bipolar disorder Risk Factors: age (under 24/over 65), SA/MH hospitalized, isolate/no social support, lack of outcome concern Substance Use/Abuse History Drug Use/Abuse minimum 12mo Hx Substances Used/Abused No Substance Abuse Treatment Substance Abuse Treatment Past Substance Abuse [place] No Education History Highest Level of Education: bachelor's degree Preferred Learning Style: visual, auditory, experiential Current Mental Status Mental Status Orientation: Person, Place, Situation Affect: Flat, Hopeless Speech: Soft Neuro-vegetative: Anhedonia, Concentration Poor, Energy Decreased, Helpless, Loss of Interest, Sleep Disturbance Appearance Appearance- Dress/Hygiene: very disheveled, very poor hygiene in hospital gown. Behaviors Thought Process: WNL Thought Content: WNL Memory: WNL Insight: Poor SI/HI Risk Assessment - Minimum 6mo History- Past Suicidal Ideation/Attempts Yes Current Suicidal Ideation/Att Yes Past Homicidal Ideation/Att: No Current Homicidal Ideation/Attempts No Degree of Intent: Thoughts/No Intent Danger To: Self Gravely Disabled: Inability Risk Factors: age (under 24/over 65), SA/MH hospitalized, isolate/no social support, lack of outcome concern Lethality Ratin Needs/Init TX Plan/Goals: Psychiatric Evaluation Medication Assessment Individual, Group and Family Meetings Coordinated Discharge Planning AUDIT-C Questionnaire: AUDIT-C Questionnaire: Response Value ETOH use in the past year Never 0 # drinks typical/day Doesn't Drink 0 6 or > drinks per occasion Never 0 Total 0 DSM5/PS Stressors/Medical Prob Diagnosis' (DSM 5, Stressors, Medical): Unspecified Bipolar depressed F31.30 UTI knee surgeries arthritis Current GAF: 20 Comments: pt in tx with Maite Esquivel LCSW and Dr Tristan at [facility] [employer]. [phone]
[2017-10-15 16:08] VITALS: BP 123/76
[2017-10-15 19:53] VITALS: BP 133/64
--- NOTE | 2017-10-15 20:23 | SOCIAL WORKER SOCIAL HX PSYCH ---
Social History Basic Assessment Insurance Authorization: Insurance #1: Insurance name: [facility] MEDIC[facility] PLAN Phone number: Policy number: [id number] Group number: [id number] Authorization number: Curr Source of Income/Entitlements: pension Primary Care Physician: Patient's PCP: Zoya Andrew MD PCP's Present Problem: Taken from Crisis consultation written by Victorina Nicholson on 10/14/17: Pt. was a 72 year old female who was transported to the ER from her psychiatrist's office, Dr. Tristan, at [facility]. She is so depressed that she lays in bed all day everyday. She had a discernable odor of unwashed clothing and urine and her hair was matted. She reported that she lays down with closed eyes all day everyday. She stated she feels suicidal but could not name a plan. She denied HI and denied AH/VH. She denied trauma history. 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 She stated she doesn't clean the house or go outside ever. Primary Language? Wolof Language(s) Spoken At Home: Wolof Living Situation Rents or Owns Home? owns Residential Care/Treatment Fac n/a Feel Safe Where You Are Living Yes Feel Safe in Relationships? Yes Allergies - Coded Allergies: Penicillins (Intermediate, RASH 10/19/15) oxycodone (From OxyContin) (Intermediate, RASH 10/19/15) morphine (Intermediate, NAUSEA 10/19/15) Current Medications - Scheduled Medications Aripiprazole (Abilify) 15 MG TABLET 1 TAB PO DAILY MENTAL HEALTH (Reported) Entered as Reported by Ashley Jones on 09/19/13 1711 Last Taken: 10/13/17 Atorvastatin Calcium (Lipitor) 80 MG TABLET 1 TAB PO DAILY CHOLESTEROL #90 ( Reported) Entered as Reported by Meron Mcneil on 11/14/16 163 Last Taken: 10/13/17 Famotidine 20 MG TABLET 1 TAB PO DAILY GI #60 (Reported) Entered as Reported by Meron Mcneil on 11/14/16 163 Last Taken: 07/16/18 Fesoterodine Fumarate (Toviaz) 8 MG TAB.ER.24H 1 TAB PO DAILY BLADDER #90 ( Reported) Entered as Reported by Meron Mcneil on 01/09/17 1616 Gabapentin 300 MG CAPSULE 1 CAP PO BID NUMBNESS IN HANDS #60 (Reported) Entered as Reported by Meron Mcneil on 01/09/17 1615 Last Taken: 300 MG on 10/15/17 1639 Sertraline HCl 50 MG TABLET 1 TAB PO DAILY DEPRESSION (Reported) Entered as Reported by Morelia Palomino on 11/22/15 1424 Last Taken: 10/13/17 Consequences of Psych Med Use: n/a Past History Past Medical History Neurological: NONE EENT: NONE Cardiovascular: hyperlipidemia Respiratory: NONE Gastrointestinal: NONE Hepatic: NONE Renal: NONE Musculoskeletal: NONE Psychiatric: depression Endocrine: NONE Blood Disorders: NONE Cancer(s): NONE RADIATION CONTROL SPECIALIST/Reproductive: NONE Past Surgical History Surgical History: BILATERAL HIP REPLACEMENT, LEFT KNEE TOTAL KNEE REPLACEMENT, RIGHT KNEE MENISCECTOMY left knee surgery /Family History Place/Country of Origin: [place] Childhood Family Constellation: mom, dad, brother Primary Childhood Caretakers: father, mother Family Life During Childhood: "Great, I have regular parents who worked and took care of us" DCF Involvement? No Mother's Age (Current/): 92 Relationship w/Mother: "good, like every other mother and daughter" Father's Age (Current/): 68 Relationship w/Father: "great" Any Sibling(s)? Yes Sibling's Gender(s)/Age(s): male Sibling 1: Relationship w/Sibling(s): "alright" Relationship w/Friends: doesn't have many friends, the one friend she did have she had a bit of a falling out with, now they don't see eachother Family Psych/Sub Abuse/Add Hx: none Abuse/Trauma History Trauma History/Current Trauma: Denies Abuse/Trauma Treatment: denies trauma history Legal History Legal Guardian/Address/Phone: n/a Current Legal Status: none Pending Court Dates: none Have you ever been arrested No Hx of Juvenile Legal Charges? No Hx of Adult Legal Charges? No Civil Proceedings: none Domestic Relations Court: none Child Protective Serv Involvmnt none Filter Helper none Psychosocial History Primary Support System: son Strengths/Capabilities: Pt. is able to articulate herself and ask for help. Weaknesses: Pt reports she does not have friends or other supports besides her son. Physical Limitations (Interventions): Pt struggles to walk at times. She had a hard time getting up out of the chair to come and meet with this short story writer. Last Physical: within the year History of Seizures? No History of Blackouts? No ADL Limitations: Pt was having a hard time keeping up with hygiene and other ADL's Forbes/Social/Peer Relations Pt does not have many friends. She reports she had one friend and they had a falling out and do not see eachother. Meaningful Activities: none reported. Childhood Christian: Latter Day Current Judaism Affiliation: Latter Day Is Spirituality Important to You? "It used to be, I haven't been to scientology in a while" Patient's Ethnicity: Tamazight, [place]i Cultural/Ethnic Issues: none reported. Are There Developmental Issues? No Milestones Achieved: fine motor, gross motor Psychiatric Treatment History Psych Treatment Inpatient Treatment Yes Outpatient Treatment Yes Location of Treatment [facility]; [facility] Reason for Treatment bipolar/depression Dates of Treatment [facility] 1988; cuurent outpatient at [facility] Response to Treatment pt experincing depression with passive SI; pt doesn't think medications are working. Current [facility]: [facility] Treatment of Prior Episodes: bipolar disorder Diagnosis: Bipolar disorder Risk Factors: age (under 24/over 65), SA/MH hospitalized, isolate/no social support, lack of outcome concern Substance Use/Abuse History Drug Use/Abuse:Min 12 mo hx Substance Used/Abused No History First Use n/a Last Used n/a How much used/taken n/a How often n/a For how long n/a Route of use n/a Have Had Periods of Sobriety? No (no substance abuse history) Explain: no substance abuse history Relapse History? No (no substance abuse history) Explain: no substance abuse history Have You Ever Attended AA? No Do You Attend AA Currently? No Do You Have a Sponsor? No Symptoms of Use: denies etoh and substance use Substance Abuse Treatment Substance Abuse Treatment Inpatient Treatment No Outpatient Treatment No Location of Treatment n/a Reason for Treatment n/a Dates of Treatment n/a Response to Treatment n/a Sexual History Sexually Active No Education History Highest Level of Education: some college, Associates Degree - Business Highest Grade Completed: Associates Vocational Year Completed: n/a Number of College Years: 2 College Degree/Major: Associates - Business Other Degree(s): n/a Preferred Learning Style: visual, auditory, experiential HX of Learning Difficulties: None reported Barriers to Learning: None reported Special Communication Needs: None reported Employment History Employment Retired Not in Labor Force: Retired 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 No Type of Discharge: n/a Date of Discharge: n/a Current Mental Status Mental Status Orientation: Person, Place, Situation Affect: Flat, Hopeless Speech: Soft Neuro-vegetative: Anhedonia, Concentration Poor, Energy Decreased, Helpless, Loss of Interest, Sleep Disturbance Appearance Appearance- Dress/Hygiene: very disheveled, very poor hygiene in hospital gown. Behaviors Thought Process: WNL Thought Content: WNL Memory: WNL Insight: Poor SI/HI Risk Assessment Past Suicidal Ideation/Attempts Yes Current Suicidal Ideation/Att Yes Past Homicidal Ideation/Att: No Current Homicidal Ideation/Attempts No Degree of Intent: Thoughts/No Intent Danger To: Self Gravely Disabled: Inability Risk Factors: Age (under 24 or over 65), SA/MH Hospitalization(s), Isolated/no social suppor, Lack of concern outcome Lethality Ratin - Conclusion and Recommendations for treatment - and discharge planning Summary: Crisis met with pt to complete social on 10/15/17. Pt reports her mood was "okay " and she was settling in to CPS. She denies SI/HI at this time. She stated she is here because she knows she needs to be here to get help. She denies AH/VH.
[2017-10-16 07:44] VITALS: BP 114/83
[2017-10-16 12:02] VITALS: BP 128/74
--- NOTE | 2017-10-16 13:14 | CPS PROVIDER INIT ASMT PSYCH ---
Psychiatric Admission Side Hemmer's Note Reviewed: Yes Patient Seen and Examined: Yes Identifying Information: 72 year old female who was transported to the ER from [facility] Chief Complaint: "I guess I'm suicidal" Reaction to Hospitalization: voluntary admission History of Present Illness Onset of Illness: worsening over past year Circumstances Leading to Admission: Pt. was a 72 year old female who was transported to the ER from her psychiatrist's office, Dr. Tristan, at [facility]. She is so depressed that she lays in bed all day everyday. She had a discernable odor of unwashed clothing and urine and her hair was matted. She reported that she lays down with closed eyes all day everyday. She stated she feels suicidal but could not name a plan. She denied HI and denied AH/VH. She denied trauma history. 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 She stated she doesn't clean the house or go outside ever. Problem(s) Justifying Need for Admission: Severe depression with thoughts of suicide Past Psychiatric History Past Diagnosis(es)- if any: Major depressive disorder. Past Precipitating Factors- if any: Unknown - Include inpatient and outpatient treatment Treatment History: The patient has been with [facility] seeing Dr. Tristan in there to be [place]. The. The fascia patient's first psychiatric hospitalization was about 30 years ago, she has not been inpatient since History of Suicide Attempts or Gestures Patient denied history of suicide attempts. Substance Abuse History: Patient denied abusing alcohol or substances. Allergies: Coded Allergies: Penicillins (Intermediate, RASH 10/19/15) oxycodone (From OxyContin) (Intermediate, RASH 10/19/15) morphine (Intermediate, NAUSEA 10/19/15) Home Med List: Patient reported that she was taking 20 mg of Abilify and 50 mg Zoloft. - Include any medical condition(s) that may - impact the patient's recovery/remission Past Medical History: BILATERAL HIP REPLACEMENT, LEFT KNEE TOTAL KNEE REPLACEMENT, RIGHT KNEE MENISCECTOMY Past History Medical History Neurological: NONE EENT: NONE Cardiovascular: hyperlipidemia Respiratory: NONE Gastrointestinal: NONE Hepatic: NONE Renal: NONE Musculoskeletal: NONE Psychiatric: depression Endocrine: NONE Blood Disorders: NONE Cancer(s): NONE TABLEAU DEVELOPER/Reproductive: NONE History of MRSA: No History of VRE: No History of CDIFF: No Isolation History: Standard Surgical History Surgical History: BILATERAL HIP REPLACEMENT, LEFT KNEE REPLACEMENT Psychiatric Family/Social Hx Family History Psychiatric Illness: The patient denied family history of psychiatric illnesses Substance Use: Patient denied history in the family of alcoholism or substance abuse. 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 - #1 Recognizing dangerous situations. - #2 Coping Skills. - #3 Basic information about quitting. Status of Tobacco Cessation Counseling: Not Applicable Cessation Med Status Not Applicable Alcohol Screening - ETOH screen POS if BAL >=80 or Audit-C>= M4/F3 Audit-C Score from Diag Assess: 0 Blood Alcohol Level: Laboratory Tests 10/14 1848 Toxicology Serum Alcohol (<10 MG/DL) < 10.0 Alcohol Use Screening Results: Neg per Audit C &/or BAL - If ETOH counseling indicated - the following topics are required. - #1 Express concern about the patient's - drinking at unhealthy levels, include informing - of national norms for moderate drinking: - men <= 14 drinks/week, max 4 drinks/occasion - women <= 7 drinks/week, max 3 drinks/occasion - #2 Providing feedback, including linking alcohol to - negative physical effects (liver injury, hypertension) - negative emotional effects (relationship problems and - depression) - negative occupational consequences (reduced work - performance) - #3 Advising the patient to abstain from alcohol or - to drink below national norms for moderate drinking - (as listed above). Status of ETOH Use Counseling: N/A B/C NO ETOH Use Metabolic Screening - Screen if on a Neuroleptic Medication - Metabolic screening should include: - Blood Pressure, BMI, Glucose or Hgb A1c, & a - Lipid profile from within the past 365 days. Metabolic Screening Patient on a neuroleptic(s) . Enter below results for Hemoglobin A1C, and lipid panel if obtained during the last 365 days. BMI: 26.600 Blood Pressure: 128/74 Laboratory Results From [facility] (If applicable): Lab Cholesterol 156 MG/DL 10/14/171848 Cholesterol/HDL Ratio 3 % 10/14/171848 HDL Cholesterol 50 mg/dL 10/14/171848 Hemoglobin A1c 6.0 % H 10/14/171848 LDL Cholesterol, Calc 83 mg/dL 10/14/171848 Triglycerides 117 mg/dL 10/14/171848 Exam and Plan Mental Status Examination Ambulation Status: The patient uses a walker to ambulate. Appearance: Somewhat disheveled. Attitude towards examiner: She was disinterested but calm Psychomotor activity: Normal psychomotor activity Behavior: No bizarre or abnormal behaviors. Quality of speech: Reduce the quantity and rate. Affect: Flat affect. Mood: Depressed mood Suicidal Ideation: Denied thinking of suicide. Homicidal Ideation: Denied thinking of violence or homicide. Hallucinations: Denied hallucinations Paranoid/Delusional Material: Denied feeling paranoid, there were no delusions during the interview. Difficulties with thought organization: Patient was coherent, there were no difficulties with thought organization. Insight: Seems to have partial insight. Judgment: Fair judgment. Orientation: She was alert and oriented to time, place, and person. 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 Estimate of intellectual functioning: Average Assets/Strengths Patient Identified Assets/Strengths: Patient has a supportive son, she is intelligent, and honest Impression/Plan Impression and Plan: 72-year-old white female with long history of depression. She presented because of worsening depression and thoughts of suicide. She does not have history of alcohol or substance use and does not present with psychotic symptoms. - Include all active medical diagnosis that require tx DSM 5 Diagnosis(es): Major depressive disorder, recurrent, severe - Initial Tx Plan for Active Psych & Medical Conditions Treatment Plan: Inpatient psychiatric care with safety checks every 15 minutes and Increase Zoloft to 100 mg daily Reduce Abilify to 10 mg daily - Factors that would help patient function - in a less restrictive setting. Factors: Patient will be discharge if she continues to deny thoughts of suicide and if she as at least mild improvement in the severity of her depression and functionality
--- NOTE | 2017-10-16 14:04 | History & Physical ---
General Information and HPI MD Statement: I have seen and personally examined MADDI VALDIVIA and documented this H&P. Source of Information: patient Exam Limitations: no limitations History of Present Illness: The patient is a 72 year old F who presented with a patient stated chief complaint of depression. Apparently patient lays on her bed all day long. She says that she is feeling depressed for more than a year now since after her hip surgery. She had to spend some time in the rehab. She denies any suicidal or homicidal ideation. She said that she has Meals on Wheels and her son lives on the first floor and she lives on the second floor. Although there is documented history of hyperlipidemia and patient's home medication reconciliation also indicated atorvastatin, patient denies any history of hyperlipidemia or taking any medications. She does complain of chronic back pain. She denies any chest pain, shortness of breath, abdominal pain, nausea vomiting. She does mention that she has urinary frequency. She denies any diarrhea or constipation. Allergies/Medications Allergies: Coded Allergies: Penicillins (Intermediate, RASH 10/19/15) oxycodone (From OxyContin) (Intermediate, RASH 10/19/15) morphine (Intermediate, NAUSEA 10/19/15) Home Med list Aripiprazole (Abilify) 15 MG TABLET 1 TAB PO DAILY MENTAL HEALTH (Reported) Atorvastatin Calcium (Lipitor) 80 MG TABLET 1 TAB PO DAILY CHOLESTEROL ( Reported) Famotidine 20 MG TABLET 1 TAB PO DAILY GI (Reported) Fesoterodine Fumarate (Toviaz) 8 MG TAB.ER.24H 1 TAB PO DAILY BLADDER ( Reported) Gabapentin 300 MG CAPSULE 1 CAP PO BID NUMBNESS IN HANDS (Reported) Sertraline HCl 50 MG TABLET 1 TAB PO DAILY DEPRESSION (Reported) Past History Travel History Traveled to [place] past 21 day No Medical History Neurological: NONE EENT: NONE Cardiovascular: hyperlipidemia Respiratory: NONE Gastrointestinal: NONE Hepatic: NONE Renal: NONE Musculoskeletal: NONE Psychiatric: depression Endocrine: NONE Blood Disorders: NONE Cancer(s): NONE CLEANER FURNITURE/Reproductive: NONE History of MRSA: No History of VRE: No History of CDIFF: No Isolation History: Standard Surgical History Surgical History: BILATERAL HIP REPLACEMENT, LEFT KNEE TOTAL KNEE REPLACEMENT, RIGHT KNEE MENISCECTOMY left knee surgery Past Family/Social History Family History Relations & Conditions if any Relation not specified for: FH: breast cancer in first degree relative FH: colon cancer Scleroderma Psychosocial History Services at Home: None Employment History Employment Retired 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 EENTM: Reports: see HPI. Cardiovascular: Reports: see HPI. Respiratory: Reports: see HPI. GI: Reports: see HPI. Genitourinary: Reports: see HPI. Musculoskeletal: Reports: see HPI. Neurological/Psychological: Reports: see HPI. Exam & Diagnostic Data Last 24 Hrs of Vital Signs/I&O Vital Signs Date Time Temp Pulse Resp B/P B/P Pulse O2 O2 Flow FiO2 Mean Ox Delivery Rate 10/16 1202 92 128/74 10/16 0744 97.3 92 114/83 10/15 1953 97.7 96 133/64 10/15 1608 99.1 92 123/76 Physical Exam General Appearance Alert, Oriented X3, No Acute Distress Skin No Rashes HEENT PERRLA Neck Supple Cardiovascular Regular Rate, Normal S1, Normal S2 Lungs Clear to Auscultation Abdomen Normal Bowel Sounds, Soft, No Tenderness Neurological Cranial Nerves II through XII: Intact Extremities No Edema Last 24 Hrs of Labs/Josr: Laboratory Tests 10/15 2031 Toxicology Urine Opiates Screen (>2000 NG/ML) < 100 Methadone Screen (>300 NG/ML) < 40 Barbiturate Screen (>200 NG/ML) < 60 Ur Phencyclidine Scrn (>25 NG/ML) < 6.00 Amphetamines Screen (>1000 NG/ML) < 100 U Benzodiazepines Scrn (>200 NG/ML) < 85 Urine Cocaine Screen (>300 NG/ML) < 50 Urine Cannabis Screen (>50 NG/ML) < 5.00 Urines Urine Color (YEL,AMB,STR) STRAW Urine Clarity (CLEAR) CLEAR Urine pH (5.0 - 8.0) 6.5 Ur Specific [place] (1.001 - 1.035) <= 1.005 Urine Protein (NEG,<30 MG/DL) NEG Urine Ketones (NEG) NEG Urine Nitrite (NEG) POS H Urine Bilirubin (NEG) NEG Urine Urobilinogen (0.1 - 1.0 EU/dl) 0.2 Ur Leukocyte Esterase (NEG) LARGE H Ur Microscopic SEDIMENT EXAMINED Urine RBC (0 - 5 /HPF) 1-3 Urine WBC (0 - 2 /HPF) > 75 H Ur Epithelial Cells (NONE,FEW) FEW Urine Bacteria (NEG/NONE) MANY H Urine Hemoglobin (NEG) TRACE-INTACT Urine Glucose (N MG/DL) NEG 10/14 1849 Chemistry Sodium (137 - 145 mmol/L) 144 Potassium (3.5 - 5.1 mmol/L) 4.6 Chloride (98 - 107 mmol/L) 105 Carbon Dioxide (22 - 30 mmol/L) 26 Anion Gap (5 - 16) 13 BUN (7 - 17 mg/dL) 20 H Creatinine (0.5 - 1.0 mg/dL) 0.8 Estimated GFR (>60 ml/min) > 60 BUN/Creatinine Ratio (7 - 25 %) 25.0 Glucose (65 - 99 mg/dL) 100 H Hemoglobin A1c (4.2 - 5.8 %) 6.0 H Calcium (8.4 - 10.2 mg/dL) 10.1 Total Bilirubin (0.2 - 1.3 mg/dL) 1.0 AST (14 - 36 U/L) 24 ALT (9 - 52 U/L) 29 Alkaline Phosphatase (<127 U/L) 57 Troponin I (< 0.11 ng/ml) < 0.01 Total Protein (6.3 - 8.2 g/dL) 7.8 Albumin (3.5 - 5.0 g/dL) 4.5 Globulin (1.9 - 4.2 gm/dL) 3.3 Albumin/Globulin Ratio (1.1 - 2.2 %) 1.4 Triglycerides (<150 mg/dL) 117 Cholesterol (<200 MG/DL) 156 LDL Cholesterol, Calc (65 - 129 mg/dL) 83 HDL Cholesterol (40 - 60 mg/dL) 50 Cholesterol/HDL Ratio (0.00 - 4.23 %) 3 Vitamin B12 (239 - 931 pg/mL) 361 Thyroxine (T4) (4.5 - 10.9 ug/dL) 9.7 TSH &T3 &Free T4 Intrp (0.270 - 4.20 uIU/mL) 0.450 Hematology CBC w Diff NO MAN DIFF REQ WBC (4.8 - 10.8 /CUMM) 8.3 RBC (4.20 - 5.40 /CUMM) 4.68 Hgb (12.0 - 16.0 G/DL) 13.9 Hct (37 - 47 %) 41.2 MCV (81.0 - 99.0 FL) 88.1 MCH (27.0 - 31.0 PG) 29.6 MCHC (33.0 - 37.0 G/DL) 33.6 RDW (11.5 - 14.5 %) 13.3 Plt Count (130 - 400 /CUMM) 340 MPV (7.4 - 10.4 FL) 7.9 Gran % (42.2 - 75.2 %) 71.4 Lymphocytes % (20.5 - 51.1 %) 18.9 L Monocytes % (1.7 - 9.3 %) 7.3 Eosinophils % (0 - 5 %) 1.7 Basophils % (0.0 - 2.0 %) 0.7 Absolute Granulocytes (1.4 - 6.5 /CUMM) 5.9 Absolute Lymphocytes (1.2 - 3.4 /CUMM) 1.6 Absolute Monocytes (0.10 - 0.60 /CUMM) 0.6 Absolute Eosinophils (0.0 - 0.7 /CUMM) 0.1 Absolute Basophils (0.0 - 0.2 /CUMM) 0.1 Toxicology Serum Alcohol (<10 MG/DL) < 10.0 Assessment/Plan Assessment: 72 y/o F with pmh sig for depression, HPL, admitted to [facility] with depression. Patient also found to have UTI. Urine cx growing GNR. Pt admitted to [facility]. Will start the patient on Bactrim. Will follow up on Urine cx. Atorvastatin has been resumed. Psych mx will be up to psychiatrist. As Ranked By This Provider Problem List: 1. Hyperlipidemia 2. Depression Qualifiers Depression Type: unspecified Qualified Code: F32.9 - Major depressive disorder, single episode, unspecified 3. Low back strain 4. UTI (lower urinary tract infection) Miscellaneous Miscellaneous Documentation Attending Case Discussed With: Akila Truner MD Primary Care Physician: Kamran ORTIZ,Zoya Raymundo Patient sees these Specialists none Level of Patient Care: SEB Millan
--- NOTE | 2017-10-16 14:06 | SOCIAL WORKER PROG NOTE PSYCH ---
Social Work Progress Note Progress Note I Suman Lynn met with Karis this morning. She was calm and cooperative but seemed disinterested in the conversation. She reports and appeared depressed with low energy. She stated that she knows she is depressed. I questioned her further about that and her definition of depression was " not enthused by anything and not wanting to do anything". She denied SI and HI. She mentioned she has a hard time caring for her self but doesn't not feel that she needs help. When asking what triggered the depression she did not know. There were no changes in her schedule. She was eager to attend group this morning. I spoke with Karis son who mentioned that Dr. Tristan who said that her meds might not be right. He mentioned that she been depressed for awhile for approximately one year. I discussed with Karis having a family meeting with her son which she was opened to but expressed concerns about his work schedule, When on the phone with Karis's son I scheduled a family meeting for Friday at 10am and let him know that Kelsie would be there and she is the sr. social media & mobile manager that has Karis. The son seems very supportive of Karis.
[2017-10-16 15:51] VITALS: BP 142/75
--- NOTE | 2017-10-16 16:16 | SOCIAL WORKER TX PLAN PSYCH ---
Treatment Plan - Please Document: - Evidence that there is ongoing collaboration between - the patient and the interdisciplinary team, - including the patient's active participation and - responsibility for engaging in the treatment regimen, - and that the treatment plan is individualized and - relevant to the patient's conditions. - Treatment plan should reflect documentation indicating - that all active therapeutic efforts are included. Strengths/Capabilities: Pt. is able to articulate herself and ask for help. Physical Limitations (Interventions): Pt struggles to walk at times. She had a hard time getting up out of the chair to come and meet with this com writer. Patient Identified Trmt Goals: Patient would like to feel less depressed Discharge Plan: Return home with outpatient services- determine if VNS services are needed and if she is eligible. Problem/Goals #1 Problem #1: depression Goal (Short Term): Patient will meet with the psychiatrist and explore medication changes Goal (Jail): Patient will have reduced depressive symptoms as evidenced by being able to verbalize hopefulness and activities that she may want to engage in again. Interventions: Patient will be offered medication management with the psychiatrist, patient will be offered group on the unit such as: coping skills, symptom management, relaxation skills, goals group, accupuncture and other leisure activities. Supervisor Tumblers will explore triggers to sadness and help reframe negative thoughts. Supervisor Tumblers will cooridate with family and set up an aftercare plan. DSM5/PS Stressors/Medical Prob Diagnosis' (DSM 5, Stressors, Medical): Unspecified Bipolar depressed F31.30 UTI knee surgeries arthritis Current GAF: 20 Treatment Team - Responsibilities of members of the treatment team include: - Medication Management- MD or BED MAKER - Medication Administration and Monitoring- Nurse - Group Therapy- Occupational Therapist - 1:1 Therapy,Disch Planning,family involvement-Supervisor Tumblers
[2017-10-16 19:49] VITALS: BP 104/59
--- NOTE | 2017-10-17 08:16 | CP SOUTH PROGRESS NOTE PSYCH ---
Psych (Inpt) Progress Note Progress Note Laboratory Tests 10/17 RBC Folate Pending Vital Signs Date Time Temp Pulse B/P 10/17 0909 97.4 96 148/82 10/16 1949 97.1 97 104/59 Mental Status: She was alert and oriented to time, place, and person. Mini-Mental Status Exam: 28 out of 30 (2 points missed for copying a diagram and one of the serial 7s) Patient did not have difficulties with short-term memory. The patient uses a walker to ambulate, she was not irritable today, she seemed more interested in conversation (compared to yesterday) some tremulousness noted, no bizarre or abnormal behaviors. Reduced quantity and rate of speech affect slightly more anumated compared to yesterday. Today, she denied feeling depressed at first but when she was questioned again, she replied "maybe a little." Denied wishing or thinking of suicide. Denied thinking of violence or homicide. Denied hallucinations, Denied feeling paranoid, there were no delusions during the interview. Patient was coherent, there were no difficulties with thought organization. Assessment: Karis Chatman is a 72-year-old white female presented because of worsening depression and thoughts of suicide. She does not have history of alcohol or substance use and does not present with psychotic symptoms. As of yesterday, denying thoughts of suicide Diagnoses: Major depressive disorder, recurrent, severe Hyperlipidemia S/P Hip Surgery about a year ago Low back strain UTI (lower urinary tract infection) Treatment Plan: Continue bactrim for UTI Continue Zoloft @ 100 mg daily (increased 10/16/17) Continue Abilify @ 10 mg daily (reduced 10/16/2017) S/P Hip Surgery about a year ago, Low back strain, UTI (lower urinary tract infection) Treatment Plan: Inpatient psychiatric care with safety checks every 15 minutes and Increase Zoloft to 100 mg daily Reduce Abilify to 10 mg daily
[2017-10-17 09:09] VITALS: BP 148/82
--- NOTE | 2017-10-17 10:17 | SOCIAL WORKER PROG NOTE PSYCH ---
Social Work Progress Note Progress Note I Suman Leah met with Karis this morning in her room. She appeared tired, shaky and fragile. She was not feeling great she said that her stomach and back were hurting her. She described her mood as ok. She did not report having any trouble sleeping. I inquired about what a goal for today would be for her and she did not know. She was not planning to go to the morning group but said she might attend some groups later on today. Her ultimate goal is to get on the correct medications and be safe enough to leave the hospital. I let her know that I scheduled a family meeting on Friday at 10 am with her son. She was agreeable to this but was concerned about his work schedule. I let her that he was available then. I also checked in with her about after care and had her agree to sign a release for Doctor Tristan. I met again with Karis in her room and introduced her to Kelsie Johnson. Karis answered questions for Kelsie. I asked her if she made it out of bed for something other than lunch and she said she went to cooking group. She is still depressed and does not feel ready to discharge. She is behaving safely on the unit and did not express safety concerns.
[2017-10-17 12:04] VITALS: BP 134/57
--- NOTE | 2017-10-17 13:21 | SOCIAL WORKER PROG NOTE PSYCH ---
Social Work Progress Note Progress Note Called [facility] for clinical review [phone] ext [phone]. Left updated clinical for continued stay. Spoke with the reviewer from [facility] later in the afternoon. She had some additional questions about her ADL's and ability to function. Questioned if she needed an OT eval. 2 additional days given with review on .
[2017-10-17 16:15] VITALS: BP 130/72
[2017-10-17 19:44] VITALS: BP 131/70
[2017-10-18 07:34] VITALS: BP 133/89
--- NOTE | 2017-10-18 11:02 | CP SOUTH PROGRESS NOTE PSYCH ---
Psych (Inpt) Progress Note Progress Note Pt notes that she is "alright." Reports sleep well overnight. Pt fully oriented x4 and feels that her mood is improving as well as UTI sx. She denies SI or HI. She does not like current room because it has "less action." Current Medications Sig/Bill Start time Last Medication Dose Route Stop Time Status Admin Acetaminophen 650 MG .STK-MED ONE 10/17 1615 DC PO 10/17 161 Acetaminophen 650 MG Q4P PRN 10/15 1230 AC 10/18 PO 0827 Al Hydroxide/Mg 30 ML Q4-6 PRN PRN 10/15 1230 AC Hydroxide PO Aripiprazole 10 MG DAILY 10/17 0900 AC 10/18 PO 0826 Atorvastatin Calcium 40 MG 1700 10/15 1700 AC 10/17 PO 1616 Benztropine Mesylate 1 MG Q6P PRN 10/15 1230 AC PO Famotidine 20 MG DAILY 10/16 0900 AC 10/18 PO 0826 Gabapentin 300 MG Q8 10/15 1400 AC 10/18 PO 0701 Haloperidol 5 MG Q6P PRN 10/15 1230 AC PO Lorazepam 2 MG Q6P PRN 10/15 1230 AC PO Magnesium Hydroxide 30 ML AT BEDTIME NEED.. 10/15 1230 AC PO Sertraline HCl 100 MG DAILY 10/17 0900 AC 10/18 PO 0826 Trimethoprim/ 1 TAB BID 10/16 1346 AC 10/18 Sulfamethoxazole PO 0826 Laboratory Tests 10/17 0630 Chemistry RBC Folate Pending MSE Appearance: as stated age Speech : nl rate, rhythm, volume and prosody Behavior: cooperative Motor: + psychomotor retardation Mood : alright Affect : flat, non-labile, irritable, appropriate, constricted Thought process: linear and goal directed Thought content : no delusions or paranoia Perceptions: denied AVHs, denied SI or HI Insight: poor Judgment: poor A/P: Pt with MDD w/SI now improved in terms of mood. Continue current medication regimen Encourage integration into the milieu
[2017-10-18 11:55] VITALS: BP 133/78
[2017-10-18 15:48] VITALS: BP 137/89
[2017-10-18 19:50] VITALS: BP 124/68
[2017-10-19 08:48] VITALS: BP 120/47
--- NOTE | 2017-10-19 12:08 | CP SOUTH PROGRESS NOTE PSYCH ---
Psych (Inpt) Progress Note Progress Note Pt notes that "tired" today. Did get up and walk around as directed and seen later in the morning walking around today as well. She ntoes that she is "just a little" better but does not believe that she is significantly better. Plans to return to living with her damadam. Senies AVHs or paranoia. Denies SI or HI. Has not really spoken to her family. Current Medications Sig/Bill Start time Last Medication Dose Route Stop Time Status Admin Acetaminophen 650 MG .STK-MED ONE 10/18 2210 DC PO 10/18 221 Acetaminophen 650 MG .STK-MED ONE 10/18 1221 DC PO 10/18 1222 Acetaminophen 650 MG Q4P PRN 10/15 1230 AC 10/18 PO 2211 Al Hydroxide/Mg 30 ML Q4-6 PRN PRN 10/15 1230 AC Hydroxide PO Aripiprazole 10 MG DAILY 10/17 0900 AC 10/19 PO 1026 Atorvastatin Calcium 40 MG 1700 10/15 1700 AC 10/18 PO 1720 Benztropine Mesylate 1 MG Q6P PRN 10/15 1230 AC PO Famotidine 20 MG DAILY 10/16 0900 AC 10/19 PO 1026 Gabapentin 300 MG Q8 10/15 1400 AC 10/19 PO 0632 Haloperidol 5 MG Q6P PRN 10/15 1230 AC PO Lorazepam 2 MG Q6P PRN 10/15 1230 AC PO Magnesium Hydroxide 30 ML AT BEDTIME NEED.. 10/15 1230 AC PO Sertraline HCl 100 MG DAILY 10/17 0900 AC 10/19 PO 1026 Trimethoprim/ 1 TAB BID 10/16 1346 AC 10/19 Sulfamethoxazole PO 1026 Laboratory Tests 10/17 0630 Chemistry RBC Folate Pending Vital Signs Date Time Temp Pulse Resp B/P B/P Pulse O2 O2 Flow FiO2 Mean Ox Delivery Rate 10/19 0848 97.8 96 120/47 10/18 1950 98.1 92 124/68 10/18 1548 100 137/89 MSE Appearance: as stated age Speech : nl rate, rhythm, volume and prosody Behavior: cooperative Motor: + psychomotor retardation Mood : tired Affect : very flat, non-labile, slightly irritable, appropriate, constricted Thought process: linear and goal directed Thought content : no delusions or paranoia Perceptions: denied AVHs, denied SI or HI Insight: poor Judgment: poor A/P: Pt with MDD w/SI now improved in terms of mood thought not signficiantly. Pt may benefit from ECT given severe depression and age. Continue current medication regimen Encourage integration into the milieu
[2017-10-19 12:09] VITALS: BP 133/80
[2017-10-19 15:40] VITALS: BP 131/70
[2017-10-19 19:50] VITALS: BP 140/70
[2017-10-20 08:43] VITALS: BP 101/46
--- NOTE | 2017-10-20 08:48 | CP SOUTH PROGRESS NOTE PSYCH ---
Psych (Inpt) Progress Note Progress Note I reviewed the notes of Dr. Cota from the weekend of October 18 and 2017. JASON, RN, Group and Activities Therapist, and Psychiatrist discussed pt.'s progress, treatment plan, and aftercare plans. Family meeting with the patient and her son and the presence of Kelsie Johnson LCSW and the physician assistant professor of mathematics student, Olga Vital Signs Date Time Temp Pulse B/P 10/20 0843 97.6 96 101/46 10/19 1950 99.1 96 140/70 10/19 1540 100 131/70 Mental Status: alert and oriented to time, place, and person, did not have significant difficulties with short-term memory. The patient uses a walker to ambulate, she was not irritable today, she seemed more interested in conversation (compared to yesterday), mild tremulousness noted, no bizarre or abnormal behaviors. Reduced quantity and rate of speech, affect slightly more anumated, She initially reported her depression as 5 out of 10, her son was present during the interview and he was forceful and she with his prompting to feeling depressed and 9 out of 10 Denied wishing or thinking of suicide. Denied thinking of violence or homicide. Denied hallucinations, Denied feeling paranoid, there were no delusions during the interview. Patient was coherent, there were no difficulties with thought organization. Assessment: Karis Chatman is a 72-year-old White female who was admitted to the inpatient psychiatric unit at [facility] on 10/15/2017 for worsening depression and thoughts of suicide. She does not have history of alcohol or substance use and does not present with psychotic symptoms. She has been denying thoughts of suicide since her admission to the inpatient psychiatric unit Diagnoses: Major depressive disorder, recurrent, severe Hyperlipidemia S/P Hip Surgery about a year ago Low back strain UTI (lower urinary tract infection) Treatment Plan: I reviewed the previous EKGs on the patient, although the patient reported that she is never been diagnosed with coronary artery disease or heart disease in general the last 2 EKGs were suggestive of an inferior infarct, age undetermined the patient denied that she was ever told that she had a any heart attacks or infarctions. I requested an updated EKG Start low-dose methylphenidate 5 mg today and tomorrow to go up to 5 mg twice daily as the patient's son described significant deterioration in her motivation , energy, drive, interest and executive function in general. Continue Zoloft @ 100 mg daily (increased 10/16/17) Continue Abilify @ 10 mg daily (reduced 10/16/2017)
--- NOTE | 2017-10-20 10:49 | SOCIAL WORKER PROG NOTE PSYCH ---
Social Work Progress Note Progress Note Karis's son Gerardo came in for a family meeting at 10am. He seemed surprised she was using a walker. Stated she hadn't had any recent falls at home. Dr. Horton was also in attendance at this meeting. Gerardo verbalized frustration around his Mother's lack of motivation and apathy towards life. He stated she is capable of doing things, but isn't. He saw a change in her behavior when she got out of rehab for her knee and hip surgeries. He couldn't recall the exact date that she was out of rehab but it was somewhere between 2-4 years ago. He stated she got used to everyone doing everything for her and that's what she wanted done at home. He also stated that she used to do well on Depakote. He does feel that her chronic pain is an issue that may also keep her in bed. He reports he sees her daily. Sounds like he sees her in the later afternoon and that she is in bed all morning not taking care of herself. We talked about seeing what services could be added to the home so that she could have assistance with showering, dressing, and light house keeping. She does have meals on wheels. He said she won't go anywhere because she gets anxious about interacting with others. Discussed benefits of a geriatric IOP or elderly day program she could attend. She seemed interested to a degree, she said "I need to be stimulated." I think she feels lonely and isolative at home. Talked about d/c for later this week, if all is put in place. Called [facility] for continued stay. Left the client care coordinator a voicemail with update.
[2017-10-20 12:10] VITALS: BP 129/81
[2017-10-20 16:01] VITALS: BP 131/84
[2017-10-20 20:06] VITALS: BP 131/70
[2017-10-21 08:20] VITALS: BP 134/72
--- NOTE | 2017-10-21 08:22 | CP SOUTH PROGRESS NOTE PSYCH ---
Psych (Inpt) Progress Note Progress Note JASON, RN, OTR/L, Group/Activities Therapist, and Psychiatrist discussed pt.'s progress, treatment plan, and aftercare plans. Family meeting with the patient and her son and the presence of Kelsie Johnson LCSW and the physician physician's assistant student, Olga Vital Signs Date Time Temp Pulse B/P B/P Pulse O2 FiO2 10/21 0820 97.1 100 134/72 10/20 2005 98.7 96 131/70 Mental Status: The reported that she tolerated methylphenidate yesterday and this morning. She was alert, oriented to time, place, and person, did not have significant difficulties with short-term memory. no bizarre or abnormal behaviors. Reduced quantity and rate of speech, affect slightly more anumated, She reported her depression 5 out of 10, denied wishing or thinking of suicide. She denied thinking of violence or homicide. She denied hallucinations, denied feeling paranoid, there were no delusions during the interview. Patient was coherent, there were no difficulties with thought organization. Assessment: 72-year-old White Female admitted to the inpatient psychiatric unit at [facility] on 10/15/2017 for worsening depression and thoughts of suicide. She does not have history of alcohol or substance use and does not present with psychotic symptoms. She has been denying thoughts of suicide since her admission to the inpatient psychiatric unit Diagnoses: Major depressive disorder, recurrent, severe S/P Hip Surgery about a year ago Low back strain UTI (lower urinary tract infection) Treatment Plan: With new EKG was reviewed with the 2 previous EKGs without any significant changes Increase methylphenidate to 10 mg AM and 1300 Continue Zoloft @ 100 mg daily (increased 10/16/17) Continue Abilify @ 10 mg daily (reduced 10/16/2017) Continue Zoloft @ 100 mg daily (increased 10/16/17) Continue Abilify @ 10 mg daily (reduced 10/16/2017)
--- NOTE | 2017-10-21 15:40 | SOCIAL WORKER PROG NOTE PSYCH ---
See Addendum Social Work Progress Note Progress Note Karis remains on a one to one due to fall risk. Reports she did a couple of groups today, but she feels tired. Started on Ritalin yesterday. Doesn't indicate any concerns other than she is tired. Asked what her mood is like today? She said "half happy half sad." Told her I was looking at services to try and get her out of the house a few times a week. She rolled her eyes. I asked what that was about? She said she only wanted to commit to something a couple times of week. She doesn't want to go to the senior center because "it was all old people." I asked what age of folks she felt most comfortable around ? She said "in their 60's." I told her that it may be difficult to find exactly that. We talked about IOP and the average age of folks in IOP here at the hospital. She said she didn't want to go to groups where you just talked about mental health. She is more interested in joining some kind of recreational group. Yet she won't try a senior center. Wants to play Bingo when asked what kind of activity she's interested in.
[2017-10-21 19:41] VITALS: BP 134/78
[2017-10-22 08:05] VITALS: BP 146/83
--- NOTE | 2017-10-22 09:01 | CP SOUTH PROGRESS NOTE PSYCH ---
Psych (Inpt) Progress Note Progress Note BIOPSYCHOLOGIST, RN, OTR/L, Group/Activities Therapist, and Psychiatrist discussed the pt.' s progress, inpatient treatment plan, and aftercare plans. Vital Signs: Date Time Temp Pulse B/P B/P Pulse O2 10/22 0805 96.5 96 146/83 Mental Status: Karis was alert & oriented to time, place, and person. She seems anxious but says she is only anxious 2/10. Reduced quantity and rate of speech, she says her mood is only slightly improved since yesterday She denied wishing or thinking of suicide. She denied thinking of violence or homicide. She denied hallucinations, denied feeling paranoid, there were no delusions during the interview. Patient was coherent, there were no difficulties with thought organization. Assessment Update: Karis Chatman is a 72-year-old White Female who was admitted to the inpatient psychiatric unit at [facility] on 10/15/2017 for worsening depression and ? wishing . She does not have history of alcohol or substance use and does not present with psychotic symptoms. She has been denying wishing or thoughts of suicide since her admission to the inpatient psychiatric unit. Diagnoses (Last Updated 10/22/2017): Major Depressive Disorder, recurrent, severe Generalized Anxiety Disorder S/P Hip Surgery Recent urinary tract infection (resolved) Treatment Plan Update: Reduce Abilify to 5 mg daily Reduce gabapentin to 100 mg TID Increase methylphenidate to 15 mg Q 08:00 and Q 13:00 Continue Zoloft @ 100 mg daily (was increased 10/16/17)
--- NOTE | 2017-10-22 11:28 | IP INCIDENTAL NOTE PSYCH ---
Incidental Note Notation: Treatment Plan Update: Since the changes I made earlier today, pt. complained of feeling restless, sweating, and "not right", her pulse went up after increasing methylphenidate to 15 mg, therefore Decrease methylphenidate back to 10 mg Q 08:00 and Q 13:00 Continue Zoloft @ 100 mg daily (was increased 10/16/17)
--- NOTE | 2017-10-22 15:06 | SOCIAL WORKER PROG NOTE PSYCH ---
Social Work Progress Note Progress Note Karis was sitting in the lounge. She remains on a one to one due to fall risk. She reports that she experienced some side effects today from the increase in Ritalin so she is being reduced back to what it was yesterday. She was perspiring alot during our meeting. She stated that other than the side effects her day was okay. She is spending time in group and reading and doing crossword puzzles. Talked about having services in home to give meds and help with showering and dressing. She appeared a little ambivalent, then stated "if they want to come." I told her it was her giving permission to people to come to her home to do those things. She then said ok. I asked her why she had refused services through [facility]? She denied needing the service at that time and said she was doing things on her own. Told her about a women's group being held across the street and asked if that was something that interested her ? She said she would be interested. She is worried about transportation. I told her I would still need to find out the day and time of the group. Called [facility] for continued stay. Left a voicemail with updated clinical with Krystal ext. [phone] Called [facility] to find out about eligibility for services. Left a message. Continued stay authorized with 2 units. Review on 10/24.
[2017-10-22 19:46] VITALS: BP 130/67
[2017-10-23 08:18] VITALS: BP 140/79
--- NOTE | 2017-10-23 11:29 | SOCIAL WORKER PROG NOTE PSYCH ---
Social Work Progress Note Progress Note Called [facility] again and left a message. Called [facility] and spoke with Charline. She is familiar with Karis and said she has been going there for years. I asked if there are groups or other services Karis could be involved in? She said they only offer individual therapy. I asked if Karis has had therapy there? She said she has a clinician Maite Esquivel, but they need a release faxed over to give further information. I told her I would fax the release. As of 4:30 we have not been able to connect. I spoke with Karis. She is off the one to one and seems to be pleased with that. When asked how she is feeling today she said she was okay. When asked specifically about mood? She said "level." She said she only feels a little better than when she came in. I told her that we are looking to d/c Friday. She said she didn't think she would be ready. I asked why? She said "I need to work on my walking and socialization." I told her those things could be done on an outpatient basis and we didn't provide terminal system operator hospitalization. Emphasized the need to have services set up outpatient and in home. She said she wouldn't mind doing PT here at [facility] if she had a ride. I told her that she could take the [employer] if she could pay for it. She seemed to think that was possible, but was only worried about getting the money from the [facility]. I told her we would discuss that with her son. Asked about her relationship with Maite at [facility]. She said she sees Maite 1x a month. Asked if she would see her more frequently? She said she would increase it to 2x's a month. Had some incontinence today. Didn't make it in time to the bathroom.
[2017-10-23 12:04] VITALS: BP 139/94
--- NOTE | 2017-10-23 14:45 | CP SOUTH PROGRESS NOTE PSYCH ---
Psych (Inpt) Progress Note Progress Note WOOD GRINDER, RN, OTR/L, Group/Activities Therapist, and Psychiatrist discussed the pt.' s progress, inpatient treatment plan, and aftercare plans. Vital Signs: 10/23 Urine Color (YEL,AMB,STR) YEL Urine Clarity (CLEAR) CLEAR Urine pH (5.0 - 8.0) 6.0 Ur Specific [place] (1.001 - 1.035) 1.015 Urine Protein (NEG,<30 MG/DL) NEG Urine Ketones (NEG) NEG Urine Nitrite (NEG) NEG Urine Bilirubin (NEG) NEG Urine Urobilinogen (0.1 - 1.0 EU/dl) 0.2 Ur Leukocyte Esterase (NEG) TRACE H Ur Microscopic SEDIMENT EXAMINED Urine WBC (0 - 2 /HPF) 1-3 H Ur Epithelial Cells (NONE,FEW) OCCAS Urine Hemoglobin (NEG) NEG Urine Glucose (N MG/DL) NEG Vital Signs Date Time Temp Pulse B/P B/P O2 FiO2 10/23 1204 100 139/94 10/23 0818 96.4 100 140/79 10/22 1946 98.8 92 130/67 Mental Status: Karis was alert & oriented to time, place, and person. She seems anxious but says she is only anxious 2/10. Reduced quantity and rate of speech, she says her mood is only slightly improved since yesterday She denied wishing or thinking of suicide. She denied thinking of violence or homicide. She denied hallucinations, denied feeling paranoid, there were no delusions during the interview. Patient was coherent, there were no difficulties with thought organization. Assessment Update: Karis Chatman is a 72-year-old White Female who was admitted to the inpatient psychiatric unit at [facility] on 10/15/2017 for worsening depression and ? wishing . She does not have history of alcohol or substance use and does not present with psychotic symptoms. She has been denying wishing or thoughts of suicide since her admission to the inpatient psychiatric unit. Diagnoses (Last Updated 10/22/2017): Major Depressive Disorder, recurrent, severe Generalized Anxiety Disorder S/P Hip Surgery Recent urinary tract infection (resolved) Treatment Plan Update: D/C Gabapentin Continue methylphenidate 10 mg Q 08:00 and Q 13:00 Continue Zoloft @ 100 mg daily (was increased 10/16/17) Abilify 5 mg daily Atorvastatin Calcium 40 MG 1700 10/15 1700 AC 10/22 Diclofenac Sodium 75 MG BID 10/20 1453 AC 10/23 Diclofenac Sodium 75 MG BID 10/20 1453 AC 10/23 Famotidine 20 MG DAILY 10/16 0900 AC 10/23 Magnesium Hydroxide 30 ML AT BEDTIME NEED.. 10/15 1230 AC Methylphenidate HCl 10 MG 0800 & 1300 10/22 1300 AC 10/23 Sertraline HCl 100 MG DAILY 10/17 0900 AC 10/23
[2017-10-23 19:54] VITALS: BP 153/84
[2017-10-24 07:36] VITALS: BP 147/98
--- NOTE | 2017-10-24 08:40 | CP SOUTH PROGRESS NOTE PSYCH ---
Psych (Inpt) Progress Note Progress Note OCEAN CLAM BOAT CAPTAIN, RN, OTR/L, Group/Activities Therapist, and Psychiatrist discussed the pt.' s progress, inpatient treatment plan, and aftercare plans. Vital Signs: Vital Signs Date Time Temp Pulse Resp B/P B/P O2 10/24 0736 96.3 100 147/98 10/23 1953 98.4 100 153/84 Mental Status: Karis was alert & oriented to time, place, and person. She smiled a couple of times and had a good sense of humor. She denied feeling anxious, she said she felt that her "mind is blank" Reduced quantity and rate of speech, she says her mood is only slightly improved since yesterday, she added that she does not feel that anything interests her anymore, nothing gives her pleasure anymore She denied wishing or thinking of suicide. She denied thinking of violence or homicide. She denied hallucinations, denied feeling paranoid, there were no delusions during the interview. Patient was coherent, there were no difficulties with thought organization. Assessment Update: Karis Chatman is a 72-year-old White Female who was admitted to the inpatient psychiatric unit on 10/15/2017 for worsening depression and (?) wishing . She does not have history of alcohol or substance use and does not present with psychotic symptoms. She scored 28/30 on the Mini-Mental Exam She has been denying wishing or thoughts of suicide since her admission to the inpatient psychiatric unit. Diagnoses (Last Updated 10/22/2017): Major Depressive Disorder, recurrent, severe Generalized Anxiety Disorder S/P Hip Surgery Treatment Plan Update: Reduce Klonopin to 0.5 mg at bedtime because of urinary incontinenece (not new but may have been increased by 1 mg Klonopin last night for suspicion of mild catatonia) Reduce methylphenidate to 5 mg Q 08:00 and Q 13:00 (pulse remained 100 bpm even at 10 mg) Continue Zoloft @ 100 mg daily (was increased 10/16/17) Continue Abilify 5 mg daily D/C Gabapentin Continue methylphenidate 10 mg Q 08:00 and Q 13:00 Continue Zoloft @ 100 mg daily (was increased 10/16/17) Abilify 5 mg daily Atorvastatin Calcium 40 MG 1700 10/15 1700 AC 10/22 Diclofenac Sodium 75 MG BID 10/20 1453 10/23
--- NOTE | 2017-10-24 16:35 | SOCIAL WORKER PROG NOTE PSYCH ---
Social Work Progress Note Progress Note Called Karis's son Gerardo to discuss discharge planning for early next week. Told him what services I was trying to put in place. Asked if there was any help with family or friends? He said no. Talked about transportation and if he was available to help with appts? He said he works Tues-Sat and doesn't get home until early evening. He said he can help with appts. on Mondays. Let him know I would be calling Friday to discuss plans. Called [facility] to ask if they were billing services under her being "homebound." During the discussion with Polly (intake coodinator), she shared that Karis would have a $40.00 co pay each visit. I don't know if the patient can afford that kind of money each week and that we would discuss it further. Met with Karis and shared the above information. She stated she could not afford that copay. I told her that may be a significant barrier to her returning directly home, due to needing more personal care at this time. She wasn't opposed to doing a rehab. Feels more anxious today she believes it may be from the Ritalin. Stated the doctor is making changes. She continues to be perspiring alot. According to nursing she had a couple of issues with incontinence today. Called [facility] for continued stay. Spoke with live in caregiver Krystal. Authorized through Friday with review on 10/27. Called Gerardo (son) and updated him on the nursing information and said we may do a nursing home facility instead. He was in support of that recommendation.
[2017-10-24 19:42] VITALS: BP 139/71
[2017-10-25 07:54] VITALS: BP 140/94
--- NOTE | 2017-10-25 12:49 | CP SOUTH PROGRESS NOTE PSYCH ---
Psych (Inpt) Progress Note Progress Note Include the following elements, when applicable: Involvement in the active treatment of the patient with behavioral observations of the patient and the patient's response to the treatment. Review of the ongoing treatment process in the context of the treatment plan. Indication of how multi-disciplinary staff members are carrying out the treatment plan. Plans for future interventions and recommendations for revision of the treatment plan. Liaison with other physicians/providers. Progress Note: Anxious, jittery and appears uncomfortable though unable to state exactly why. Her pulse was 108 this morning, remains above 100. She has had trouble holding her urine still. Her urine culture was negative. She is unable to articulate in detail her experiences, stating only that she is restless and "not right." MSE: older woman, walks steadily with walker (despite her complaints of weakness ), speech is regular to soft, regular rate. Her mood is neutral and affect is constricted. Her eye contact is good. She is fairly well related. She appears uneasy, but is unable to articulate in detail her experiences. Her thinking is concrete, without gross evidence of delusions or other disorganized thought process. She denies feeling depressed or wanting to harm herself or anyone else. Her insight and judgment are fair. 72 year old woman with depressive sx, admitted with thoughts to be , now anxious, uneasy with perhaps thought blocking/impoverished thinking? unclear symptoms, she is only able to explain that she feels "not right." Plan: hold 1pm ritalin dose, her pulse remains elevated, will see if any change tmr. continue other medications, continue staff support, RNs and other staff have been providing reassurance, education regularly to her.
[2017-10-25 19:27] VITALS: BP 149/88
[2017-10-26 08:17] VITALS: BP 144/88
--- NOTE | 2017-10-26 12:52 | CP SOUTH PROGRESS NOTE PSYCH ---
Psych (Inpt) Progress Note Progress Note Include the following elements, when applicable: Involvement in the active treatment of the patient with behavioral observations of the patient and the patient's response to the treatment. Review of the ongoing treatment process in the context of the treatment plan. Indication of how multi-disciplinary staff members are carrying out the treatment plan. Plans for future interventions and recommendations for revision of the treatment plan. Liaison with other physicians/providers. Progress Note: Anxious to get up and leave room, states that she feels weak; sweating. Her pulse remains elevated to 110-116, BP was elevated to 150/100 before lunch. Her morning ritalin dose was held and I have discontinued it for now. Apparently she was on a med for urination prior to admission, pharmacy noted that closest they have is detrol, this was ordered. She has no psychiatric complaints, apart from anxiety and sweating. Denies feeling depressed. Very needy, requesting frequent assistance with basic fuctioning. MSE: older woman, walks steadily with walker. Sweaty. No psychomotor agitation, minor slowing. Grooming is fair. Her mood is neutral and her affect is constricted. She makes fair eye contact. She is anxious to get up and has concrete thinking. She denies feeling depressed or wanting to harm herself or anyone else. Her insight and judgment are fair. 72 year old woman with depressive sx, admitted with thoughts to be , now anxious, uneasy with perhaps thought blocking/impoverished thinking? unclear symptoms, she is only able to explain that she feels weak and anxious. Plan:continue staff support, RNs and other staff have been providing reassurance , education regularly to her. Discussed to call foreign diplomat to evaluate her due to 1 day holding ritalin with ongoing elevated pulse, sweating and elevated BP, normal uculture. d/c ritalin for now due to above sx.
--- NOTE | 2017-10-26 13:21 | Event Note ---
Event Note Event Note: RN from [facility] called to inform that the pt is sweating profusely. Pt denies CP or SOB. Ritalin that was initiated during the admission has been discontinued. Pt's HR in 100's. --check 12 lead EKG --check 1 set of troponin --if above neg, likely related to ritalin adverse effects
[2017-10-26 19:49] VITALS: BP 141/83
[2017-10-27 07:57] VITALS: BP 149/90
--- NOTE | 2017-10-27 08:43 | CP SOUTH PROGRESS NOTE PSYCH ---
Psych (Inpt) Progress Note Progress Note PRODUCT SCIENTIST, RN, OTR/L, Group/Activities Therapist, and Psychiatrist discussed the pt.' s progress, inpatient treatment plan, and aftercare plans. Vital Signs: Date Time Temp Pulse B/P B/P Pulse O2 FiO2 10/27 0757 97.5 100 149/90 Mental Status: Karis complained about feeling tired. She was alert & oriented to time, place, and person. She denied feeling anxious, Her speech was marked for reduced quantity and rate, she says her mood is only slightly improved, does not feel that anything interests her anymore, nothing gives her pleasure anymore, she felt that her "mind is blank" She denied wishing or thinking of suicide. She denied thinking of violence or homicide. She denied hallucinations, denied feeling paranoid, there were no delusions during the interview. Patient was coherent, there were no difficulties with thought organization. Assessment Update: Karis Chatman is a 72-year-old White Female who was admitted to the inpatient psychiatric unit for worsening depression and (?) wishing . She does not have history of alcohol or substance use and does not present with psychotic symptoms. She scored 28/30 on the Mini-Mental Exam Since her admission on 10/15/2017, she has been denying wishing or thoughts of suicide. Diagnoses (Last Updated 10/27/2017): Major Depressive Disorder, recurrent, severe Generalized Anxiety Disorder S/P Hip Surgery Urinary incontinence Treatment Plan Update: D/C Klonopin Continue Zoloft @ 100 mg daily (was increased 10/16/17) Continue Abilify 5 mg daily
--- NOTE | 2017-10-27 15:35 | SOCIAL WORKER PROG NOTE PSYCH ---
Social Work Progress Note Progress Note Met with Karis this afternoon. She spent alot of time in bed this morning. She reports feeling somewhat weak today. She believes it is from the discontinuation of the Ritalin. She remains somewhat anxious and "a little shaky." Continues to have issues with urinary incontinence. She is wearing a depends. She called her son today and left a message requesting additional clothes. She reports she is sleeping, but stated her current bed is too "squeaky" and causing her to be uncomfortable. She is requesting a change, but it is difficult for nursing to put her in another room with a roommate due to the incontinence. Asked if she had any concerns about anything that she would like to talk about? She said she was worried that her bills werent' getting paid at home. She doesn't feel her son can help her pay the bills because she typically pays with her debit card. Made some suggestions, but she turned them down. I asked what she would like to do? She said "they just won't get paid." Called [facility] and left updated clinical. [facility] professional healthcare representative returned the call asking for additional info about medications.
[2017-10-28 08:00] VITALS: BP 118/78
--- NOTE | 2017-10-28 09:12 | CP SOUTH PROGRESS NOTE PSYCH ---
Psych (Inpt) Progress Note Progress Note ASSISTANT PRINTER FLOOR COVERING, RN, OTR/L, Group/Activities Therapist, and Psychiatrist discussed the pt.' s progress, inpatient treatment plan, and aftercare plans. Vital Signs: Vital Signs Date Time Temp Pulse B/P B/P Pulse O2 FiO2 10/28 0800 97.5 104 118/78 Mental Status: Karis reported feeling weak/tired, alert & oriented to time, place, and person. She denied feeling anxious, reduced quantity and rate of speech she says her mood is "about the same", low to no interest, low to no pleasure anymore, "mind is blank" She denied wishing or thinking of suicide. She denied thinking of violence or homicide. She denied hallucinations, denied feeling paranoid, there were no delusions during the interview. Patient was coherent, there were no difficulties with thought organization. Assessment Update: Karis Chatman is a 72-year-old White Female who was admitted to the inpatient psychiatric unit for worsening depression and (?) wishing . She does not have history of alcohol or substance use and does not present with psychotic symptoms. She scored 28/30 on the Mini-Mental Exam Since her admission on 10/15/2017, she has been denying wishing or thoughts of suicide. Diagnoses (Last Updated 10/27/2017): Major Depressive Disorder, recurrent, severe Generalized Anxiety Disorder S/P Hip Surgery Urinary incontinence Treatment Plan Update: Discontinue Abilify Start Wellbutrin 75 mg once daily first dose around noontime today Continue Zoloft @ 100 mg daily (was increased 10/16/17)
--- NOTE | 2017-10-28 10:30 | SOCIAL WORKER PROG NOTE PSYCH ---
Social Work Progress Note Progress Note Called [facility] and left additional requested information for continued stay. Submitted the [facility] application for senior care LOC.
--- NOTE | 2017-10-28 12:48 | SOCIAL WORKER PROG NOTE PSYCH ---
Social Work Progress Note Progress Note [facility] returned called and has approved today, with the next review on . Auth#[id number] ( ext. [id number])
[2017-10-28 20:07] VITALS: BP 144/83
[2017-10-29 08:35] VITALS: BP 138/93
--- NOTE | 2017-10-29 10:40 | SOCIAL WORKER PROG NOTE PSYCH ---
Social Work Progress Note Progress Note Karis was in her room sleeping at 10am. Attempted to wake and speak with her. She woke startled and then stated she is trying to get more sleep due to nursing waking her every hour last night to use the bathroom. I told her I'd like to submit some referrals to nursing facilities today, so we could get started on that. She said she was open to referrals being sent to [facility] and where ever else I thought and she would sign releases after. I faxed referrals to [facility], and [facility]. Received phone calls back from [facility] that there are no current open beds. Faxed additional documents to [facility] per request. Waiting to hear next steps in the [facility] process.
--- NOTE | 2017-10-29 12:20 | CP SOUTH PROGRESS NOTE PSYCH ---
Psych (Inpt) Progress Note Progress Note INSEAM TRIMMER, RN, OTR/L, Group/Activities Therapist, and Psychiatrist discussed the pt.' s progress, inpatient treatment plan, and aftercare plans. Vital Signs: Date Time Temp Pulse B/P 10/29 0835 97.6 100 138/93 10/28 2006 97.7 100 144/83 Mental Status: Karis reported that she continues to feel tired She was awake & oriented to time, place, and person. She denied feeling anxious, Karis has reduced quantity and rate of speech, she says her mood is "about the same", low to no interest, low to no pleasure anymore, "mind is blank", she denied wishing or thinking of suicide. She denied thinking of violence or homicide. She denied hallucinations, denied feeling paranoid, there were no delusions during the interview. Patient was coherent, there were no difficulties with thought organization. Assessment Update: Karis Chatman is a 72-year-old White Female who was admitted to the inpatient psychiatric unit for worsening depression and (?) wishing . She does not have history of alcohol or substance use and does not present with psychotic symptoms. She scored 28/30 on the Mini-Mental Exam: Since her admission on 10/15/2017, she has been denying wishing or thoughts of suicide. Diagnoses (Last Updated 10/27/2017): Major Depressive Disorder, recurrent, severe Generalized Anxiety Disorder S/P Hip Surgery Urinary incontinence Treatment Plan Update: Wellbutrin 75 mg once daily Continue Zoloft @ 100 mg daily (was increased 10/16/17) Atorvastatin Calcium 40 MG 1700 10/15 1700 AC 10/28 Diclofenac Sodium 75 MG BID 10/20 1453 AC 10/29 Famotidine 20 MG DAILY 10/16 09 AC 10/29 Tolterodine Tartrate 4 MG 10/26 08 AC 10/29
[2017-10-29 19:58] VITALS: BP 131/73
[2017-10-30 08:19] VITALS: BP 142/89
--- NOTE | 2017-10-30 12:00 | CP SOUTH PROGRESS NOTE PSYCH ---
Psych (Inpt) Progress Note Progress Note Mental Status: Karis reported that she feels restless today (? bupropion side effect) She was awake & oriented to time, place, and person. Karis has reduced quantity and rate of speech, she says her mood is "about the same", low interest, low pleasure, "mind is blank", she denied wishing or thinking of suicide. She denied thinking of violence or homicide. She denied hallucinations, denied feeling paranoid, there were no delusions during the interview. Karis was coherent, there were no difficulties with thought organization. Assessment Update: Karis Chatman is a 72-year-old White Female who was admitted to the inpatient psychiatric unit for worsening depression and (?) wishing . Since her admission on 10/15/2017, Karis has been denying wishing or thoughts of suicide. Diagnoses (Last Updated 10/27/2017): Major Depressive Disorder, recurrent, severe Generalized Anxiety Disorder S/P Hip Surgery Urinary incontinence Treatment Plan Update: Xanax 0.5 mg x once for restless/ / side effects of bupropion Continue Wellbutrin 75 mg once daily Continue Zoloft @ 100 mg daily (was increased 10/16/17) S/P Hip Surgery Urinary incontinence Treatment Plan Update: Wellbutrin 75 mg once daily Continue Zoloft @ 100 mg daily (was increased 10/16/17) Atorvastatin Calcium 40 MG 1700 10/15 1700 AC 10/28 Diclofenac Sodium 75 MG BID 10/20 1453 AC 10/29 Famotidine 20 MG DAILY 10/16 09 AC 10/29 Tolterodine Tartrate 4 MG 10/26 08 AC 10/29
--- NOTE | 2017-10-30 13:52 | SOCIAL WORKER PROG NOTE PSYCH ---
Social Work Progress Note Progress Note Placed calls to [facility], [facility], and [facility]. Left voicemails for admissions. Received a call back from Sheryl at [facility]. Sheryl stated she reviewed her referral and can't see a need for fci at this time. I explained further what the patients needs are and that it was an unsafe d/c plan to send her home. She said that she will consider the patient for a bed if she is approved by [facility] and OT/PT write something that indicates that is what is needed. Left updated clinical with [facility] for continued stay. Received a call from Jolly at [facility] that she would be coming to interview Karis this evening around 7pm. Karis was on the phone with the bank this afternoon. She didn't care to elaborate on what the issue was, but said that on Friday her son will help her pay bills from here. I told her I was glad she worked something out so she didn 't have to worry about that. Reports that she was a little restless from the Wellbutrin today, but taking a dose of Xanax calmed her and she was feeling better. Let her know that Jolly from [facility] will be seeing her and interviewing her tonight. Explained the purpose of the interview. She seemed okay with participating in it. She reports less incontinence today, due to nursing prompting her and an increase in her medication. 3 additional units approved by [facility] with review on Friday 11/03.
[2017-10-30 20:06] VITALS: BP 129/77
[2017-10-31 07:53] VITALS: BP 141/86
--- NOTE | 2017-10-31 08:17 | CP SOUTH PROGRESS NOTE PSYCH ---
Psych (Inpt) Progress Note Progress Note The pt.'s progress, inpatient treatment plan, and aftercare plans were discussed in the treatment planning meeting (team included: Kelsie Johnson, JASON, RN, OTR/L, and Psychiatrist) Vital Signs Date Time Temp Pulse B/P 10/31 0753 97.2 100 141/86 10/30 2005 99.2 104 129/77 Mental Status: Karis was in bed for long periods of time. Even thought she was in bed about to take a nap after having had lunch, she said she was feeling restless (??), few minutes later, she got up on her own and came to my office. Karis reported that her mood is "about the same", she continues to report low interest, low pleasure, and a "blank" mind Patient has impoverished speech with reduced quantity and rate. Karis denied wishing or thinking of suicide. She denied thinking of violence or homicide. She denied hallucinations, denied feeling paranoid, there were no delusions during the interview. Karis was coherent, there were no difficulties with thought organization. Assessment Update: Karis Chatman is a 72-year-old White Female who was admitted to the inpatient psychiatric unit for worsening depression and (?) wishing . Since her admission on 10/15/2017, Karis has been denying wishing or thoughts of suicide. Her mood continues to be depressed, with low interest, low pleasure, low motivation, and "blank mind" Diagnoses (Last Updated 10/27/2017): Major Depressive Disorder, Recurrent, severe Generalized Anxiety Disorder S/P Hip Surgery Urinary Incontinence Treatment Plan Update: Xanax 0.5 mg x once for restlessness and daily in AM with Bupropion for the enxt 2-3 days Continue Wellbutrin 75 mg once daily Continue Zoloft @ 100 mg daily (was increased 10/16/17)
--- NOTE | 2017-10-31 13:24 | SOCIAL WORKER PROG NOTE PSYCH ---
Social Work Progress Note Progress Note Karis was in her room around 1pm. I attempted to speak with her. She woke and stated she is sleeping and had just taken a Xanax. She looked a little tremulous. I asked if she was feeling okay? She said she just took a Xanax and was trying to sleep. She asked what I wanted? I told her I was just checking in on her. Called [facility] and asked when we may expect the report from the evaluation? I was told it should be available Friday the latest. I later received the report by fax. Karis was approved for 120 days.
[2017-10-31 19:41] VITALS: BP 129/84
[2017-11-01 07:50] VITALS: BP 142/95
--- NOTE | 2017-11-01 11:26 | CP SOUTH PROGRESS NOTE PSYCH ---
Psych (Inpt) Progress Note Progress Note Pt notes that she is sleepy this morning because she took xanax for anxiety. Does plan on attending groups, which she enjoys. Denies SI or HI. Feels that she has been sleeping better recently. Current Medications Sig/Bill Start time Last Medication Dose Route Stop Time Status Admin Acetaminophen 650 MG Q4P PRN 10/15 1230 AC 10/23 PO 1659 Al Hydroxide/Mg 30 ML Q4-6 PRN PRN 10/15 1230 AC Hydroxide PO Alprazolam 0.5 MG DAILY 10/31 1252 AC 11/01 PO 11/07 1251 0757 Atorvastatin Calcium 40 MG 1700 10/15 1700 AC 10/31 PO 1633 Bupropion HCl 75 MG DAILY 10/28 1208 AC 11/01 PO 0755 Diclofenac Sodium 75 MG BID 10/20 1453 AC 11/01 PO 0755 Famotidine 20 MG DAILY 10/16 0900 AC 11/01 PO 0754 Magnesium Hydroxide 30 ML AT BEDTIME NEED.. 10/15 1230 AC PO Sertraline HCl 100 MG DAILY 10/17 0900 AC 11/01 PO 0755 Tolterodine Tartrate 4 MG 10/26 0800 AC 11/01 PO 0754 Vital Signs Date Time Temp Pulse Resp B/P B/P Pulse O2 O2 Flow FiO2 Mean Ox Delivery Rate 11/01 749 96.6 100 142/95 10/31 1941 97.5 100 129/84 MSE Appearance: as stated age Speech : nl rate, rhythm, volume and prosody Behavior: cooperative Motor: + psychomotor retardation Mood : sleepy Affect : flat, tired non-labile, not irritable, appropriate, constricted Thought process: linear and goal directed Thought content : no delusions or paranoia Perceptions: denied AVHs, denied SI or HI Insight: poor Judgment: poor A/P: Pt with hx of MDD with improved mood. -Continue current medication regimen
[2017-11-01 19:41] VITALS: BP 127/70
[2017-11-02 08:19] VITALS: BP 137/65
--- NOTE | 2017-11-02 11:51 | CP SOUTH PROGRESS NOTE PSYCH ---
Psych (Inpt) Progress Note Progress Note Pt notes she had poor sleep overnight but does not want to make medication changes as she needs to get up multiple times throughout the night to urinate. Denies SI or HI. Current Medications Sig/Bill Start time Last Medication Dose Route Stop Time Status Admin Acetaminophen 650 MG Q4P PRN 10/15 1230 AC 10/23 PO 1659 Al Hydroxide/Mg 30 ML Q4-6 PRN PRN 10/15 1230 AC Hydroxide PO Alprazolam 0.5 MG DAILY 10/31 1252 AC 11/02 PO 11/07 1251 0947 Atorvastatin Calcium 40 MG 1700 10/15 1700 AC 11/01 PO 1653 Bupropion HCl 75 MG DAILY 10/28 1208 AC 11/02 PO 0946 Diclofenac Sodium 75 MG BID 10/20 1453 AC 11/02 PO 0946 Famotidine 20 MG DAILY 10/16 0900 AC 11/02 PO 0946 Magnesium Hydroxide 30 ML AT BEDTIME NEED.. 10/15 1230 AC PO Oxybutynin Chloride 5 MG TID 11/02 0900 AC 11/02 PO 0946 Oxybutynin Chloride 5 MG TID 11/02 0100 DC PO Sertraline HCl 100 MG DAILY 10/17 0900 AC 11/02 PO 0946 Tolterodine Tartrate 4 MG 10/26 0800 DC 11/01 PO 0754 Vital Signs Date Time Temp Pulse Resp B/P B/P Pulse O2 O2 Flow FiO2 Mean Ox Delivery Rate 11/02 818 96.7 91 137/65 11/01 1941 98.7 96 127/70 MSE Appearance: as stated age Speech : nl rate, rhythm, volume and prosody Behavior: cooperative Motor: no psychomotor retardation or agitation Mood : tired Affect : flat, tired non-labile, not irritable, appropriate, constricted Thought process: linear and goal directed Thought content : no delusions or paranoia Perceptions: denied AVHs, denied SI or HI Insight: poor Judgment: poor A/P: Pt with hx of MDD with improved mood. -Continue current medication regimen
[2017-11-02 19:57] VITALS: BP 125/89
[2017-11-03 07:56] VITALS: BP 147/91
--- NOTE | 2017-11-03 08:27 | CP SOUTH PROGRESS NOTE PSYCH ---
Psych (Inpt) Progress Note Progress Note I reviewed Dr. Cota's notes for the weekend of November 01 and 2017. Vital Signs Date Time Temp Pulse B/P B/P Pulse O2 11/03 0756 97.0 96 147/91 11/02 1957 98.5 97 125/89 Mental Status: Karis reported some improvement in her energy level. Patient has impoverished speech with reduced quantity and rate. She did acknowledge that and indicated that she has tough time socializing because she is not a talker Karis reported that her mood is "about the same", she continues to report low interest, low pleasure, and a "blank" mind. Karis denied wishing or thinking of suicide. She denied thinking of violence or homicide. She denied hallucinations, denied feeling paranoid, there were no delusions during the interview. Karis was coherent, there were no difficulties with thought organization. Assessment Update: Karis Chatman is a 72-year-old White Female who was admitted to the inpatient psychiatric unit for worsening depression and (?) wishing . Since her admission on 10/15/2017, Karis has been denying wishing or thoughts of suicide. Her mood continues to be depressed, with low interest, low pleasure, low motivation, and "blank mind" Diagnoses (Last Updated 10/27/2017): Major Depressive Disorder, Recurrent, severe Generalized Anxiety Disorder S/P Hip Surgery Urinary Incontinence Treatment Plan Update: Continue Xanax 0.5 mg daily in AM with Bupropion Continue Wellbutrin 75 mg once daily Continue Zoloft @ 100 mg daily (was increased 10/16/17)
--- NOTE | 2017-11-03 11:05 | SOCIAL WORKER PROG NOTE PSYCH ---
Social Work Progress Note Progress Note Faxed the [facility] report to [place], [facility], and [facility]. Recieved a call from Karis's son Gerardo inquiring about a family meeting today. I told him that we didn't have a meeting scheduled. He said he received a voicemail about having a meeting. I reiterated that I did not set up a meeting. I asked if he felt a meeting was necessary? He said no. He asked what a family meeting entails? I told him that we had a family meeting. He did not recall being here for the meeting. I told him I am working on setting his Mother up with a fpc facility and was waiting for a bed. He had no other concerns. Spoke with Karis. Informed her that her son was confused about the meeting today and that there is no meeting. She stated she was anticipating seeing him today to help with her bills. I asked what happened to him coming on Friday? She said he needed to come today instead. I reminded her that he can only come during visiting hours. Informed her that the approval for [facility] came through and that we are now just waiting for a bed at a nursing facility. Asked if we should pursue other facilites other than the 3 that we have done? She said she wanted to see what comes of these first. I told her if they don't have a bed we are going to look at others. She denies any SI today. Reports mood is "in the middle." States "sorry I don't have much to say" "I have a hard time talking." Asked if she had any concerns she wanted to talk about? She said no. Encouraged her to go to group. When asked what goal she could work on today? She said she didn't have one and didn't know. Stated she was working on getting dressed. Wants to call her son about coming in to work on bills. [facility] (therapist[facility] and left an update. Called [facility] for continued stay. Ngoc stated patient is becoming more alf at this point and gave 1 additional day with review for tomorrow 11/04. She would like to know if a urinary consult is being done and if there are continued med changes happening.
--- NOTE | 2017-11-03 16:37 | SOCIAL WORKER PROG NOTE PSYCH ---
Social Work Progress Note Progress Note [facility] - left for Yue Valdez, Director Frank Liao - Spoke with Zenobia Woo unit secy- RN is reviewing. NO female bed available - waiting to hear from [facility], may have a bed Weds. 11/05. Will call us back tomorrow - gave Kelsie Reza contact info. [facility] - - Left for Jennifer/admissions inquire abouit clinical and [facility] approval faxed.
[2017-11-03 19:42] VITALS: BP 121/56
[2017-11-04 08:35] VITALS: BP 131/88
--- NOTE | 2017-11-04 09:12 | CP SOUTH PROGRESS NOTE PSYCH ---
Psych (Inpt) Progress Note Progress Note Vital Signs Date Time Temp Pulse B/P 11/03 0756 97.0 96 147/91 11/02 1956 98.5 97 125/89 Mental Status: Karis complained of feeling very weak today. Patient has impoverished speech with reduced quantity and rate. She reported that her mood is "about the same", she continues to report low interest and low pleasure. She described what sounded poverty of thought (i.e. my mind is "blank"). Karis denied wishing or thinking of suicide. She denied thinking of violence or homicide. She denied hallucinations, denied feeling paranoid, there were no delusions during the interview. Karis was coherent, there were no difficulties with thought organization. Assessment Update: Karis Chatman is a 72-year-old White Female who was admitted to the inpatient psychiatric unit for worsening depression and (?) wishing . Since her admission on 10/15/2017, Karis has been denying wishing or thoughts of suicide. Her mood continues to be depressed, with low interest, low pleasure, low motivation, and "blank mind" Diagnoses (Last Updated 10/27/2017): Major Depressive Disorder, Recurrent, severe Generalized Anxiety Disorder S/P Hip Surgery Urinary Incontinence Treatment Plan Update: D/C Xanax Continue all other medications unchanged
--- NOTE | 2017-11-04 13:56 | SOCIAL WORKER PROG NOTE PSYCH ---
Social Work Progress Note Progress Note Received a call from Jennifer at [facility] stating they are not in contract with [facility] and can't take her. Received a call from Yue at [facility] that they have no female openings. Spoke with Karis about the above information and told her that we needed to expand our referrals. She agreed to be referred to [facility] in [place] and [facility] in [place]. I faxed over referrals to each. Karis is reporting feeling weak today. She couldn't put her shoe on and needed assistance. She continues to be urinary incontinent. She was somewhat irritable when we met due to me not knowing alot of information about the nursing facilities. She stated "well why I am meeting with you then." She did not see her son yesterday and couldn't say when she may see him. Encouraged her to stay out in the milieu to be around other people, but she stated she didn't feel like talking to other people. I asked if that was because of her mood today? She said that her mood was "medium." Said she felt weak and wanted to lay down. Left updated clinical with [facility]. They called back requesting a peer review. Dr. Chaves will reach out to Dr. Horton on at 11am. Received a call from Priya at [facility]. She works with [facility]. It sounds like they may accept Karis for a bed tomorrow. They are requesting a no harm letter from the psychiatrist and authorization from [facility]. They are requesting that I call them in the morning. . She said I should receive a call from Ángel tomorrow.
[2017-11-04 20:09] VITALS: BP 117/58
[2017-11-05 08:26] VITALS: BP 144/85
--- NOTE | 2017-11-05 10:05 | SOCIAL WORKER PROG NOTE PSYCH ---
Social Work Progress Note Progress Note Called the number to obtain authorization for snf that was given to me yesterday by [facility] staff. The prompts did not indicate her plan. I called [facility] this morning and spoke with someone in administration (Deborah) . She said she would talk to their field case manager and get back to me. Meanwhile I received a call from Ángel Pearson in admissions. Gave her an update on Karis' s status. She received the letter that was faxed this morning on risk drafted by Dr. Horton. She stated she would be reviewing her information and get back to me. Spoke with Karis who was laying in bed. She asked if she was going to the nursing facility? I told her we were working on it. She didn't offer any concerns. I asked if she was feeling anxious? She denied this. She said she saw her son last night and that he is aware of the plan. She asked how she would get there? I asked if her son wanted to bring her? She said "no he's working." I told her we would work that out. Spoke with Ángel in admissions she said Karis is accepted today. Nursing can call the nursing supervisor prop making Mary to give report. We will plan for her to be there around 2pm. Spoke with Karis's son Gerardo and told him the plan. He said he was available to pick her up and take her there. Karis left shortly after 2pm when her son arrived to the hospital.
--- NOTE | 2017-11-05 11:06 | SOCIAL WORKER PROG NOTE PSYCH ---
Social Work Progress Note Progress Note [facility] asked for AUTH for rehab for patient. [facility] will accept patient with a DENIAL from Medicare [place] [facility]. Will use Gilles Gordon Called [employer] insurance - #[phone] they need CPT Codes and Medical diagnosis codes. Spoke with Candis Gomes in Care managment she stated need to call [facility]#[phone] - spoke with Briana - she asked for CPT codes (Medical) which were provided by Dr. Horton - Z96.641, E78.2, R39.81, M54.5. ASked for AUTH or DENIAL to be EXPEDITED, as patient is scheduled to d/c at 2pm today to [facility]. Briana stated she will expedite - will receive a FAX response in 2hrs (by 2pm). REquested 14 day AUTH. Faxed H&P, PT Eval, demographic sheet to [facility]#[phone].
[2017-11-05] MEDS ORDERED: BUPROPION HCL75 M1 PO (11:15)
[2017-11-05] MEDS ORDERED: OXYBUTYNIN CHLOR5 M2 PO (11:15)
[2017-11-05] MEDS ORDERED: ATORVASTATIN CA40 M1 PO (11:15)
[2017-11-05] MEDS ORDERED: ZOLOFT100 M1 PO (11:15)
--- NOTE | 2017-11-05 11:16 | Patient Discharge Instructions ---
Psych Discharge Inst General Discharge Information Reason for Admission: wishing Psy Discharge Primary Diag+ MDD Psy Discharge Secondary Diag+ Generalized Anxiety Disor Summary Tests/Major Procedures Lab Ur Epithelial Cells OCCAS 10/23/17 1200 Ur Leukocyte Esterase TRACE H 10/23/17 1200 Ur Microscopic SEDIMENT EXAMINED 10/23/17 1200 Ur Specific [place] 1.015 10/23/17 1200 Urine Bilirubin NEG 10/23/17 1200 Urine Clarity CLEAR 10/23/17 1200 Urine Color YEL 10/23/17 1200 Urine Glucose NEG MG/DL 10/23/17 1200 Urine Hemoglobin NEG 10/23/17 1200 Urine Ketones NEG 10/23/17 1200 Urine Nitrite NEG 10/23/17 1200 Urine Protein NEG MG/DL 10/23/17 1200 Urine Urobilinogen 0.2 EU/dl 10/23/17 1200 Urine WBC 1-3 /HPF H 10/23/17 1200 Urine pH 6.0 10/23/17 1200 Studies Pending at DC: None Patient Instructions Contact Information Your Psychiatrist on [facility] was Clifford ORTIZ,James * If you are experiencing an emergency related to this hospitalization, please call [phone] to contact the treating psychiatrist or the psychiatrist-on- call. * To Request a copy of your medical records, please contact the Medical Records Department at [phone]. * To request results of studies pending at the time of discharge, please call [phone]. * Continue your Medications until directed to stop by your Healthcare provider. General Medication Information Please continue to take your new medications and your continued home medications , unless otherwise indicated on your discharge medication list, or unless directed by your MD or [employer]MENT[employer] S[employer] REGISTRAR to stop them. Special Instructions Diet Regular Activity As Tolerated - Tobacco Use Treatment Offered Post DC Medications Offered: Not Applicable Post DC Tobacco Treatment Plan: Not Applicable - EtOH/Drug Use D/O Treatment Offered Post DC Medications Offered: NA-No EtOH/Drug Use D/O Post DC EtOH/SubAbuse TX Plan: NA-No EtOH/Drug Use D/O Advance Directives Does the Patient have Medical Advance Directives No/Refused further info Does Pt have Psychiatric Advance Directives? No/Refused further info Does Patient have a Designated Surrogate Decision Maker: No Information About Psychiatric Advance Directives Provided? Refused Discharge Plan Post Hospital Treatment Plan: SNF
--- NOTE | 2017-11-05 11:21 | CP SOUTH PROGRESS NOTE PSYCH ---
Psych (Inpt) Progress Note Progress Note The patient's progress, inpatient treatment plan, and aftercare plans were discussed in the treatment planning meeting (team members: Kelsie Johnson LCSW; Arline Ernst RN; OTR/L, and James Horton MD, psychiatrist) Vital Signs Date Time Temp Pulse Resp B/P B/P Pulse O2 O2 Flow FiO2 11/05 825 96.7 100 144/85 11/04 2008 98.5 100 117/58 Mental Status: The pt. is in bed, still reporting feeling weak, impoverished speech, with reduced quantity and rate. She reported that her mood is "about the same", she continues to report low interest and low pleasure. She described what sounded poverty of thought (i.e. my mind is "blank"). Karis denied wishing or thinking of suicide. She denied thinking of violence or homicide. She denied hallucinations, denied feeling paranoid, there were no delusions during the interview. Karis was coherent, there were no difficulties with thought organization. Assessment Update: Karis Chatman is a 72-year-old White Female who was admitted to the inpatient psychiatric unit for worsening depression and (?) wishing . Since her admission on 10/15/2017, Karis has been denying wishing or thoughts of suicide. Her mood continues to be depressed, with low interest, low pleasure, low motivation, and "blank mind" Diagnoses (Last Updated 10/27/2017): Major Depressive Disorder, Recurrent, severe Generalized Anxiety Disorder S/P Hip Surgery Urinary Incontinence Treatment Plan Update: D/C to a SNF
--- NOTE | 2017-11-05 11:21 | DISCHARGE SUMMARY REPORT-PSYCH ---
Visit Information Visit Dates/Diagnosis' Admission Date: 10/15/17 Discharge Date: 11/05/17 Reason for Admission: wishing Psy Discharge Primary Diag: MDD Psy Discharge Secondary Diag: Generalized Anxiety Disor Hospital Course Significant Lab Findings: Summary Tests/Major Procedures Lab Ur Epithelial Cells OCCAS 10/23/17 1200 Ur Leukocyte Esterase TRACE H 10/23/17 1200 Ur Microscopic SEDIMENT EXAMINED 10/23/17 1200 Ur Specific [place] 1.015 10/23/17 1200 Urine Bilirubin NEG 10/23/17 1200 Urine Clarity CLEAR 10/23/17 1200 Urine Color YEL 10/23/17 1200 Urine Glucose NEG MG/DL 10/23/17 1200 Urine Hemoglobin NEG 10/23/17 1200 Urine Ketones NEG 10/23/17 1200 Urine Nitrite NEG 10/23/17 1200 Urine Protein NEG MG/DL 10/23/17 1200 Urine Urobilinogen 0.2 EU/dl 10/23/17 1200 Urine WBC 1-3 /HPF H 10/23/17 1200 Urine pH 6.0 10/23/17 1200 Studies Pending at DC: None Course Complications: The patient did not have any complications while she was on the inpatient psychiatric unit. Consultations: Patient had a history and physical examination by the tool and die technician while she was on the inpatient psychiatric unit. Please refer to the patient's electronic health record for the details of the H&P. Allergies: Coded Allergies: Penicillins (Intermediate, RASH 10/19/15) oxycodone (From OxyContin) (Intermediate, RASH 10/19/15) morphine (Intermediate, NAUSEA 10/19/15) Hospital Course/TX Response: 10/16/2017: Dr. Horton's Initial Impression and Plan: 72-year-old white female with long history of depression. She presented because of worsening depression and thoughts of suicide. She does not have history of alcohol or substance use and does not present with psychotic symptoms. Diagnosis(es): Major depressive disorder, recurrent, severe Initial Treatment Plan: Inpatient psychiatric care with safety checks every 15 minutes and Increase Zoloft to 100 mg daily Reduce Abilify to 10 mg daily The patient stayed relatively long time on the inpatient psychiatric unit because after the first week or so, the treatment team realized that the patient needed a assisted facility list level of care/short-term physical rehab and assisted care due to issues with her activities of daily living as well as ongoing incontinence ongoing need with clothing as well as concern about fall risk and stability of her gait. The patient's Abilify was gradually reduced and then ultimately stopped altogether. It seems that the patient has been on a high dose of Abilify for about a year in conjunction with the Zoloft and there has been no significant change in her level of depression. In a family meeting, the patient's son reported that for the past year the patient has been present pretty much vegetating at home and just laying in bed until in the early afternoon requiring a lot of prompting in order to get out of bed and shower and take care of her activities of daily living. Throughout her to stay on the inpatient psychiatric unit the patient denied that she ever had any thoughts of suicide. However, it looks like she may have said something about wishing when she was attending an appointment at [facility] with her psychiatrist, then Dr. Tristan. For the remainder of her stay on the inpatient psychiatric unit and there were no wishes of and no thoughts of suicide. However the patient continued to feel depressed and reported that there has been no significant change in her mood. She also reported low energy, low interest in activities, low desire and engaging in social interactions, and minimal pleasure in daily activities. I Mini-Mental Status exam revealed that she had scored 28 out of 30 suggesting that her symptoms may be secondary to the significant depressive symptoms. Short a trial of methylphenidate in order to boost the effectiveness of her antidepressant and to give her energy is on motivation and some improvement in executive function. Despite some improvement, the patient seems to not be able to tolerate the methylphenidate and started having restlessness and feelings of sweatiness and her pulse was hovering around 100 bpm. However of intermittent methylphenidate was discontinued there was no change in her heart rate. After that trial of a low-dose Wellbutrin (75 mg in the morning) was tried. The patient did complain of the restlessness again and she was given for a few days Xanax in the morning to help her through the initial phase of adjusting to the Wellbutrin 11/05/2017 Mental Status: The pt. is in bed, still reporting feeling weak, impoverished speech, with reduced quantity and rate. She reported that her mood is "about the same", she continues to report low interest and low pleasure. She described what sounded poverty of thought (i.e. my mind is "blank"). Karis denied wishing or thinking of suicide. She denied thinking of violence or homicide. She denied hallucinations, denied feeling paranoid, there were no delusions during the interview. Karis was coherent, there were no difficulties with thought organization. Assessment Update: Karis Chatman is a 72-year-old White Female who was admitted to the inpatient psychiatric unit for worsening depression and (?) wishing . Since her admission on 10/15/2017, Karis has been denying wishing or thoughts of suicide. Her mood continues to be depressed, with low interest, low pleasure, low motivation, and "blank mind" Diagnoses (Last Updated 10/27/2017): Major Depressive Disorder, Recurrent, severe Generalized Anxiety Disorder S/P Hip Surgery Urinary Incontinence Treatment Plan Update: D/C to a SNF Discharge HBIPS - Tobacco Use Treatment Offered Post DC Medications Offered: Not Applicable Post DC Tobacco Treatment Plan: Not Applicable - EtOH/Drug Use D/O Treatment Offered Post DC Medications Offered: NA-No EtOH/Drug Use D/O Post DC EtOH/SubAbuse [place] Plan: NA-No EtOH/Drug Use D/O Metabolic Screening - Screen if on a Neuroleptic Medication - Metabolic screening should include: - Blood Pressure, BMI, Glucose or Hgb A1c, & a - Lipid profile from within the past 365 days. Metabolic Screening Not Applicable, patient not on a neuroleptic. Discharge Instructions General Discharge Information Multiple Neuroleptics: Not Applicable Discharge Diet Regular Discharge Activity As Tolerated DC Disposition: Patient was discharged to a assisted facility. Referrals Ordered Referrals Provider Referral 11/05/17 For Groups: [[facility]] [facility] admission 11/05/17 [address] [place] [address] Prescriptions Stop taking the following medications: Aripiprazole (Abilify) 15 MG TABLET ORAL DAILY Sertraline HCl (Sertraline HCl) 50 MG TABLET ORAL DAILY Atorvastatin Calcium (Lipitor) 80 MG TABLET ORAL DAILY Qty = 90 Fesoterodine Fumarate (Toviaz) 8 MG TAB.ER.24H ORAL DAILY Qty = 90 Continue taking these medications: Famotidine (Famotidine) 20 MG TABLET 1 Tablet ORAL DAILY Qty = 60 Comments: Last Taken:11/05/17 Time:9am Start taking the following new medications: Atorvastatin Calcium (Atorvastatin Calcium) 40 MG TABLET 40 Milligram ORAL 5 PM Qty = 1 No Refills Comments: Last Taken:11/04/17 Time:5pm Sertraline HCl (Zoloft) 100 MG TABLET 100 Milligram ORAL DAILY Qty = 1 No Refills Comments: Last Taken:11/05/17 Time:9am Bupropion HCl (Bupropion HCl) 75 MG TABLET 75 Milligram ORAL DAILY Qty = 1 No Refills Comments: Last Taken:11/05/17 Time:9am Oxybutynin Chloride (Oxybutynin Chloride) 5 MG TABLET 5 Milligram ORAL THREE TIMES DAILY Qty = 1 No Refills Comments: Last Taken:11/05/17 Time:9am Studies Pending at Discharge None Copies To: [facility]
--- NOTE | 2017-11-05 14:44 | SOCIAL WORKER PROG NOTE PSYCH ---
Social Work Progress Note Faxed Referral(s) Referred To: [facility] Transition of Care Documents sent: Health Summary, W10 Faxed to: Admissions Fax #: [phone] Faxed by: Kelsie Johnson Date faxed: 11/05/17 Time Faxed: [phone]
== END 2017-11-05 14:19 | DRG 881 ==
LOC: ERH 18:12 → CP SOUTH 10-15 10:30 → ERHI 10-15 10:30 → CP SOUTH 10-15 14:27 → ENRESERV 10-15 23:59 → CP SOUTH 10-18 08:46
PROVIDERS: Physician Assistant
DX: F32.9 Major depressive disorder, single episode, unspecified (principal); N39.0 Urinary tract infection, site not specified; F41.1 Generalized anxiety disorder; Z88.0 Allergy status to penicillin; Z88.5 Allergy status to narcotic agent; Z96.643 Presence of artificial hip joint, bilateral; Z96.652 Presence of left artificial knee joint; E78.5 Hyperlipidemia, unspecified
CPT/HCPCS: 36415; 80307; 81001; 87086; 93005; 93010; 97116-GO; 97161-GP; G0463; G0480; J0401

== ENCOUNTER 2017-12-22 09:46 | Emergency (ER) | payer OTHER ==
[~2017-12-22] VITALS: Ht 170.2 cm; Wt 78.9 kg
[~2017-12-22 09:46] MED LIST changes: +ATORVASTATIN CA40 M1 PO; +BUPROPION HCL75 M1 PO; +OXYBUTYNIN CHLOR5 M2 PO; +ZOLOFT100 M1 PO
[2017-12-22] MEDS ORDERED: WELLBUTRIN XL300 M2 PO (09:58)
[2017-12-22] MEDS ORDERED: PRISTIQ ER50 MG PO (09:58)
[2017-12-22] MEDS ORDERED: RANITIDINE HCL150 MG PO (10:00)
[2017-12-22] MEDS ORDERED: TRAZODONE HCL50 M1 PO (10:00)
[2017-12-22] MEDS ORDERED: OXYBUTYNIN CHLOR5 M2 PO (10:02)
[2017-12-22 10:51] LABS: ABSOLUTE BASOPHIL COUNT 0 /CUMM (0.0-0.2); ABSOLUTE EOSINOPHIL COUNT 0.2 /CUMM (0.0-0.7); ABSOLUTE GRANULOCYTE CT 6.1 /CUMM (1.4-6.5); ABSOLUTE MONOCYTE COUNT 0.5 /CUMM (0.10-0.60); BASOPHIL % 0.5 % (0.0-2.0); EOSINOPHIL % 2.8 % (0-5); GRANULOCYTE % 77.5 % (42.2-75.2); HEMATOCRIT 39.4 % (37-47); MEAN CORPUSCULAR HGB 29.8 PG (27.0-31.0); MEAN CORPUSCULAR HGB CONC 34.3 G/DL (33.0-37.0); MEAN CORPUSCULAR VOLUME 86.8 FL (81.0-99.0); MEAN PLATELET VOLUME 7.3 FL (7.4-10.4); PLATELET COUNT 344 /CUMM (130-400); RBC DISTRIBUTION WIDTH 14.1 % (11.5-14.5); RED BLOOD CELL CT 4.54 /CUMM (4.20-5.40); WHITE BLOOD CELL COUNT 7.9 /CUMM (4.8-10.8)
--- NOTE | 2017-12-22 11:04 | ED GENERAL ADULT ---
See Addendum History of Present Illness General Chief Complaint: General Adult Stated Complaint: BIBA GEN WEAKNESS,INCONTINENCE Source: patient, old records Exam Limitations: no limitations Vital Signs & Intake/Output Vital Signs & Intake/Output Vital Signs Date Time Temp Pulse Resp B/P B/P Pulse O2 O2 Flow FiO2 Mean Ox Delivery Rate 12/24 1033 98.0 90 20 126/70 96 Room Air Allergies Coded Allergies: Penicillins (Intermediate, RASH 10/19/15) oxycodone (From OxyContin) (Intermediate, RASH 10/19/15) morphine (Intermediate, NAUSEA 10/19/15) Reconcile Medications Atorvastatin Calcium 40 MG TABLET 40 MG PO 1700 dyslipidemia Bupropion HCl (Wellbutrin XL) 300 MG TAB.ER.24H 1 TAB PO DAILY DEPRESSION ( Reported) Desvenlafaxine Succinate (Pristiq ER) 50 MG TAB.ER.24H 2 TAB PO DAILY MENTAL HEALTH (Reported) Oxybutynin Chloride 5 MG TABLET 1 TAB PO Q8P PRN URINARY INCONTINENCE ( Reported) Ranitidine (Ranitidine HCl) 150 MG TABLET 1 TAB PO DAILY GI (Reported) Trazodone HCl 50 MG TABLET 1 TAB PO QPM SLEEP (Reported) Triage Note: BIBA FROM HOME, SENT BY [facility] FOR EVALUATION OF WEAKNESS, UNABLE TO GET OOB X 4 DAYS, DENIES PAIN, STATES, "I CAN'T WALK", "I HAVENT EATEN IN 2 DAYS." "I AM PEEING A LOT". INCONTINENT LARGE AMOUNT URINE, Triage Nurses Notes Reviewed? yes HPI: 72 year old female with PMH depression, HLD presenting to ED after being BIBA for weakness, fatigue, and inability to get out of bed. Patient states she is cared for by her son who lives downstairs. She states for 2-4 days she has felt too ill to get out of bed. She has been laying in her own urine. She denies any BM during that time. She states she just felt too weak to get out of bed. She states her son normally helps her get out of bed, but she refused his help. She denies any depression, SI/HI, fever, chills, chest pain, SOB, n/v/d, abdominal pain. (Randal ORTIZ,Daysi) Past History Travel History Traveled to [place] past 21 day No Medical History Any Pertinent Medical History? 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 No (Randal ORTIZ,Daysi) Surgical History Surgical History: BILATERAL HIP REPLACEMENT, LEFT KNEE TOTAL KNEE REPLACEMENT, RIGHT KNEE MENISCECTOMY left knee surgery (Gloria ORTIZ,Corbin Coleman) Review of Systems Review of Systems Constitutional: Reports: weakness. Denies: chills, diaphoresis, fever. EENTM: Reports: no symptoms. Respiratory: Reports: no symptoms. Cardiovascular: Reports: no symptoms. GI: Reports: no symptoms. Genitourinary: Reports: no symptoms. Musculoskeletal: Reports: no symptoms. Skin: Reports: no symptoms. Neurological/Psychological: Reports: depressed, headache, numbness, tingling. (Daysi Tee MD) Physical Exam Physical Exam General Appearance: alert, awake, mild distress, A&Ox3; wants something to drink -asking repeatidly; smells of stagnant urine Head: atraumatic, normal appearance Eyes: Bilateral: PERRL (crusting to bilateral lids). Ears, Nose, Throat: dry MM, thrush to tongue Neck: normal inspection, supple Respiratory: normal breath sounds, chest non-tender, no respiratory distress Cardiovascular: regular rate/rhythm Peripheral Pulses: 2+ radial (R), 2+ radial (L) Gastrointestinal: normal bowel sounds, soft, non-tender Extremities: normal inspection, normal capillary refill Neurologic/Psych: awake, alert, oriented x 3, decreased strength bilateral upper and lower extremities 3/5 Skin: rash, rash to left hip;buttock;spreads across back-raised, erythematous, non tender, multiple excoriations, small 0.5x0.5cm area of skin breakdown left buttock. Core Measures ACS in differential dx? No CVA/TIA Diagnosis: No Sepsis Present: No Sepsis Focused Exam Completed? No (Randal ORTIZ,Daysi) Progress Differential Diagnoses I considered the following diagnoses in my evaluation of the patient: [UTI vs contact dermatitis vs cellulitis vs unable to care for self] Initial ED EKG: none Comments: 11:00 72 year old female presenting with weakness, fatigue, inability to get out of bed for 2-4 days laying in urine. Will work patient up for dehydration and possible UTI. Patient with extensive rash to left buttock and back with excoriations and skin breakdown. This is likely 2/2 skin contact with urine for an extended period of time. Patient is at risk for progression of rash to cellulitis with presence of excoriations and breakdown. Will provide rehydration with IV NS 500cc bolus, labs to evaluate for UTI, electrolyte abn. Patient will likely need Case Management involvement as she is below her baseline and unable to care for self. 11:08 CBC shows no leukocytosis and VS hemodynamically stable. Less concerned for systemic infection at this time. Will await UA results and rest of labs to identify source of generalized weakness. 12:06 Electrolytes within normal limits. UA negative. BUN elevated suggesting dehydration. 14:00 Spoke with son on the phone. He states patient has fallen 3 times in the past three days because she is too weak to walk. She was recently discharged from [facility] where she was receiving PT. She has not been able to walk on her own since returning from that facility. She is unable to get up and feed herself. The son states he is not her caregiver as he works 6 days a week and is already at work before she wakes up. She has had visiting RNs at the house but the son is unaware of the schedule. He feels she is too weak to function and is below her baseline. He also believes her mental health is not well managed and believes she is depressed. If the son does not go check on her, she is alone and unable to care for self. Will involve Case Managent in care. Patient was able to ambulate with RN and walker in ED, but turned around at room door saying she didn't want to go further. 16:58 Awaiting crisis eval to rule out underlying psychiatric dx contributing to inability to care for self. Will continue to work with Crisis and Case management for appropriate placement of this patient. (Daysi Tee MD) Differential Diagnoses I considered the following diagnoses in my evaluation of the patient: Plan of Care: Orders Procedure Date/time Status CASE MANAGEMENT CONSULT 12/24 0559 Active Theraputic Activities 15 Min 12/23 UNK Complete MOBILITY GOAL STATUS 12/23 UNK Complete MOBILITY CURRENT STATUS 12/23 UNK Complete Gait Training, 15 Min 12/23 UNK Complete PT EVAL LOW COMPLEX 20 MIN 12/23 UNK Complete Current Medications Sig/Bill Start time Last Medication Dose Stop Time Status Admin Trazodone HCl 50 MG QPM 12/23 2100 UNVr 12/23 (Desyrel) 2036 Acetaminophen 650 MG Q4P PRN 12/23 1945 UNVr (Tylenol) Atorvastatin Calcium 40 MG 1700 12/23 1700 UNVr 12/23 (Lipitor) 1915 Oxybutynin Chloride 5 MG Q8P PRN 12/23 0915 UNVr (Ditropan 2.5MG Tab(1/2 of a 5mg tab)) Bupropion HCl 300 MG DAILY 12/23 09 UNVr 12/24 (Wellbutrin XL) 0914 Famotidine 20 MG DAILY 12/23 09 UNVr 12/24 (Pepcid) 0914 Laboratory Tests 12/23/17 1417: Troponin I Cancelled Comments: 12/22/2017 7:20:27 PM patient signed out to me by resident at the end of her shift. I have discussed her case with crisis and also case management. Patient signed out to Dr. Ortega at shift mold changer. (Gloria ORTIZ,Corbin Coleman) Departure Departure Condition: Stable Referrals: Kamran ORTIZ,oZya Raymundo (PCP/Family) Departure Forms: Customer Survey General Discharge Information (Daysi Tee MD) Departure Disposition: STILL A PATIENT Clinical Impression Primary Impression: Depression Resident Co-Sign Statement Statement: ED Attending supervision documentation- [X] I saw and evaluated the patient. I have also reviewed all the pertinent lab results and diagnostic results. I agree with the findings and the plan of care as documented in the Resident's documentation. [] I have reviewed the ED Record and agree with the Resident's documentation. [] Additions or exceptions (if any) to the Resident's note and plan are summarized below: [] (Gloria ORTIZ,Corbin Coleman) PA/THERMOMETER PRODUCTION WORKER Co-Sign Statement Statement: ED Attending supervision documentation- x I saw and evaluated the patient. I have also reviewed all the pertinent lab results and diagnostic results. I agree with the findings and the plan of care as documented in the PA's/THERMOMETER PRODUCTION WORKER's documentation. [] I have reviewed the ED Record and agree with the PA's/THERMOMETER PRODUCTION WORKER's documentation. [] Additions or exceptions (if any) to the PAs/THERMOMETER PRODUCTION WORKER's note and plan are summarized below: [] (Hollis Ortega MD) Departure Comments pt to be signed out to dr. de la cruz, 12/24/17, 7am. (Narendra ORTIZ,Carlos Diaz) Departure Comments 12/24/17 9:55 AM She was signed out to me by Dr. Mackey. He was evaluated by case management. She has been given a bed at [facility]. (Corbin Rivero DO) Critical Care Note Critical Care Note Critical Care Time: non-applicable (Corbin Castro MD) 12/24/17 9:55 AM She was signed out to me by Dr. Mackey. He was evaluated by case management. She has been given a bed at [facility]. (Corbin Rivero DO) Critical Care Note Critical Care Note Critical Care Time: non-applicable (Corbin Castro MD) summarized below: [] (Hollis Ortega MD) Critical Care Note Critical Care Note Critical Care Time: non-applicable (Corbin Castro MD)
--- NOTE | 2017-12-22 21:27 | ED PSYCH CRISIS CONSULTATION ---
Crisis Consult Basic Assessment Date of Consult: 12/22/17 Responsible Person/Accompanied By: Brought in by ambulance Insurance Authorization: Insurance #1: Insurance name: [facility] Phone number: Policy number: [id number] Group number: Authorization number: ED Provider: Patient's ED Provider: Daysi Tee MD Primary Care Physician: Patient's PCP: Zoya Andrew MD PCP's Current Psychiatrist: None Chief Complaint: General Adult Patient's Quote: "I was peeing in my bed and I did not eat for 2 days." Present Illness: The patient is a 72 year old, , female presenting to the ED from home, after being found in bed, incontinent. The patient presented alert and irritable during the evaluation. She provided minimal answers to questions asked and continues to become increasingly irritable, the more questions she was asked. She states that the reason she was lying in bed, was because she was "weak and couldn't walk." When asked if she is feeling depressed, she states that she does not have a problem with depression and rates it a 2 out of 10, 10 being the most severe. She states that she is feeling slightly anxious and rates it a 3 out of 10, 10 being the most severe. She was preoccupied with feeling weak and not being able to ambulate. She states that she does not know why she feels that way and is not able to give a timeline, of how long she has been feeling that way. She denies feeling helpless or hopeless and denies having AH or VH. She denies any current or history of suicidal or homicidal ideations. She was on CPS in September of 2107 for making a suicidal comment, which she now adamantly denies. She does not feel that she has a need for mental health treatment and only believes that she needs to be in a fci. She again reiterates, " I'm not safe at home, I cant walk and I am weak." FERMÍN spoke to her son, Gerardo Chatman ([phone]), for collateral information. Gerardo states that he believes that his mother is depressed. He states that the patient has been saying that she is depressed. He states that the patient has not had depression, until about 6 months ago. He states that he has never known her to be suicidal or homicidal. He states that she continues to change her mind about assisted living. He believes that she needs a medication adjustment and "for her to be taken care of." He states that she goes to [facility] for her mental health treatment. Patient's Address: [address] [place] [id number] Other Phone Number: Who Do You Live With? Son Family/Informants Interviewed: Son- Gerardo Chatman - [phone] Allergies - Coded Allergies: Penicillins (Intermediate, RASH 10/19/15) oxycodone (From OxyContin) (Intermediate, RASH 10/19/15) morphine (Intermediate, NAUSEA 10/19/15) Current Medications - Scheduled Medications Atorvastatin Calcium 40 MG TABLET 40 MG PO 1700 dyslipidemia #1 TAB Prescribed by Clifford ORTIZ,James on 11/05/17 Bupropion HCl (Wellbutrin XL) 300 MG TAB.ER.24H 1 TAB PO DAILY DEPRESSION ( Reported) Entered as Reported by Mario Sanchez on 12/22/17 0958 Desvenlafaxine Succinate (Pristiq ER) 50 MG TAB.ER.24H 2 TAB PO DAILY MENTAL HEALTH (Reported) Entered as Reported by Mario Sanchez on 12/22/17 0958 Ranitidine (Ranitidine HCl) 150 MG TABLET 1 TAB PO DAILY GI (Reported) Entered as Reported by Mario Sanchez on 12/22/17 1000 Trazodone HCl 50 MG TABLET 1 TAB PO QPM SLEEP (Reported) Entered as Reported by Mario Sanchez on 12/22/17 1000 Scheduled PRN Medications Oxybutynin Chloride 5 MG TABLET 1 TAB PO Q8P PRN URINARY INCONTINENCE ( Reported) Entered as Reported by Mario Sanchez on 12/22/17 1002 Laboratory Results: Laboratory Tests 12/22/17 1130: Urine Opiates Screen < 100, Methadone Screen < 40, Barbiturate Screen < 60, Ur Phencyclidine Scrn < 6.00, Amphetamines Screen 432, U Benzodiazepines Scrn < 85, Urine Cocaine Screen < 50, Urine Cannabis Screen < 5.00, Urine Color YEL, Urine Clarity CLEAR, Urine pH 6.0, Ur Specific Nordman 1.025, Urine Protein NEG, Urine Ketones 40 H, Urine Nitrite NEG, Urine Bilirubin NEG@ICTO, Urine Urobilinogen 0.2, Ur Leukocyte Esterase NEG, Ur Microscopic EXAM NOT REQUIRED, Urine Hemoglobin NEG, Urine Glucose NEG 12/22/17 1040: Anion Gap 16, Estimated GFR > 60, BUN/Creatinine Ratio 42.5 H, Glucose 94, Calcium 9.7, Total Bilirubin 1.6 H, AST 26, ALT 23, Alkaline Phosphatase 51, Total Protein 7.5, Albumin 4.1, Globulin 3.4, Albumin/Globulin Ratio 1.2, CBC w Diff NO MAN DIFF REQ, RBC 4.54, MCV 86.8, MCH 29.8, MCHC 34.3, RDW 14.1, MPV 7.3 L, Gran % 77.5 H, Lymphocytes % 12.6 L, Monocytes % 6.6, Eosinophils % 2.8, Basophils % 0.5, Absolute Granulocytes 6.1, Absolute Lymphocytes 1.0 L, Absolute Monocytes 0.5, Absolute Eosinophils 0.2, Absolute Basophils 0, Serum Alcohol < 10.0 Microbiology 12/22 1130 URINE ROUT: Urine Culture - RECD Past History Past Medical History Neurological: NONE EENT: NONE Cardiovascular: hyperlipidemia Respiratory: NONE Gastrointestinal: NONE Hepatic: NONE Renal: NONE Musculoskeletal: NONE Psychiatric: depression Endocrine: NONE Blood Disorders: NONE Cancer(s): NONE DRUG SAFETY SCIENTIST/Reproductive: 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 is able to articulate her needs and ask for help. Physical Limitations (Interventions): She states that she is weak and has trouble walking. Psychiatric Treatment History Psych Treatment Psychiatric Treatment Yes Inpatient Treatment Yes Outpatient Treatment Yes Location of Treatment [facility] Reason for Treatment Depression Dates of Treatment Current with [facility] and last IP September. Response to Treatment Unclear. Per her son, she needs her medication adjusted. Diagnosis by History: Bipolar disorder Substance Use/Abuse History Drug Use/Abuse Substances Used/Abused No First Use N/A Last Used N/A How much used/taken N/A How often N/A For how long N/A Route of use N/A Substance Abuse Treatment Substance Abuse Treatment Past Substance Abuse TX No Inpatient Treatment No Outpatient Treatment No Location of Treatment N/A Reason for Treatment N/A Dates of Treatment N/A Response to Treatment N/A Comments: N/A Current Mental Status Mental Status Orientation: Person, Place, Situation Affect: Anxious (Irritable), Angry Speech: WNL Neuro-vegetative: Appetite Decreased (Because she "can't walk.") Appearance Appearance- Dress/Hygiene: She was lying in bed, in hospital attire, disheveled and unkempt. Behaviors Thought Process: WNL Thought Content: Focused on feeling weak and not being able to walk. Memory: WNL Insight: Fair SI/HI Risk Assessment Past Suicidal Ideation/Attempts No (Pt. denies) Current Suicidal Ideation/Att No (Pt. denies) Past Homicidal Ideation/Att: No (Pt. denies) Current Homicidal Ideation/Attempts No (PT. denies) Degree of Intent: None Danger To: N/A Gravely Disabled: N/A Risk Factors: age (under 24/over 65), SA/MH hospitalized, limited support Lethality Ratin PTSD Checklist PTSD Done? pt unable to participate ED Management Sitter: No Restraints: No DSM5/PS Stressors/Medical Prob Diagnosis' (DSM 5, Stressors, Medical): F32.9 Unspecified Depressive Disorder Medical: Pt. denies Stressors: "Nothing." Current GAF: 33 Comments: N/A Departure Disposition Psych Medical Clearance Date: 12/22/17 Medically Cleared at: 1900 Time Started: 1914 Time Ended: 1944 Psychiatrist Consulted: Shania Chapman MD Date Disposition Established: 12/22/17 Time Disposition Established: 2044 Plan for Disposition - Modality: Refer to Case Managment for further disposition. Contact: N/A Telephone: N/A Rationale for Disposition: The patient is a 72 year old, , female presenting to the ED from home, after being found in bed, incontinent. The patient denies feeling depressed at this time. She continues to report that she is feeling "weak and can't walk." She denies any suicidal or homicidal ideations. The case was discussed with Dr. Chapman and she does not find the patient to be an acute risk to self or others. Dr. Chapman psychiatrically cleared the patient and recommends that she be referred to Case Management for further disposition and PT evaluation. Per Dr. Chapman, the patient should continue to follow up with [facility]. The case was discussed with Annamarie from Case Management. Additional Instructions: N/A Referrals Kamran ORTIZ,Zoya Raymundo (PCP/Family)
[2017-12-24 10:33] VITALS: BP 126/70
== END 2017-12-24 10:57 ==
LOC: ERH 09:46
PROVIDERS: Internal Medicine
DX: F32.9 Major depressive disorder, single episode, unspecified (principal); E78.5 Hyperlipidemia, unspecified
CPT/HCPCS: 80307; 81003; 87086; 96372; 97116-GP; 97161-GP; 97530-GP; G0463; G0480; G8978-GP; G8979-GP; J3101; J7040